=== PATIENT | female | born 1940 | race Caucasian/White ===

== ENCOUNTER 2018-03-14 07:43 | Outpatient (CLI) | payer MEDICARE, SELFPAY ==
[2018-03-14] VITALS (13 sets, daily range): BP systolic 104–143; BP diastolic 53–87; PULSE 73–84; RESP 16; TEMP 36.4; O2SAT 97–100
--- NOTE | 2018-03-14 07:45 | DI.RAD.S_ITS ---
PROCEDURE: PAIN C/T INTERLAMINAR INJECT INDICATIONS: 77 year-old female with thoracic radiculopathy. FINDINGS: Fluoroscopic spot filming was performed to verify placement of spinal needles at the posterior midline T8-T9 level(s), as labeled on the films. Appropriate location(s) of the needle tip(s) was confirmed by injection of iodinated contrast. IMPRESSION: Fluoroscopic guidance for T8-T9 epidural steroid injection. Dictated by: Brayan Trimble M.D. on 03/14/2018 at 10:21 Approved by: Brayan Trimble M.D. on 03/14/2018 at 10:22
--- NOTE | 2018-03-14 08:30 | PC.NURSE ---
PT ADMITS TO TAKING 2 VALIUM AT APPROX 0650 THIS MORNING. STATES THIS IS NORMAL PROTOCAL FOR HER BEFORE PROCEDURE. CURRENT VS'S, BP 117/70, HR 73, O2 98. SLIGHTLY UNSTEADY GAIT, WHEELCHAIR NEEDED FOR TRANSPORT FROM WAITING ROOM TO PRE-PROCEDURE ROOM. DR. COOK NOTIFIED OF MEDICATIONS AND CURRENT VITAL SIGNS AND CHANGE IN GAIT FROM BASELINE. PT STATES AT BASELINE SHE WALKS INDEPENDENTLY. PT IS A&OX4.
--- NOTE | 2018-03-14 08:59 | PM.PROC.1 ---
Procedures Date/Time Date of procedure: 03/14/18 Time of procedure: 08:59 General Procedure description: Preop diagnosis: Thoracic stenosis with HNP Postprocedure diagnosis: Thoracic stenosis with HNP Physician: Joe Mazariegos D.O. Indications: Ariana is referred by Niecy BARROSO for treatment of thoracic DDD/DJD with radiculopathy Description of procedure: Fluoroscopic guided, contrast controlled T8-9 translaminar epidural steroid injection with conscious sedation. Following denial of allergy review potential side effects and complications, including, but not necessarily limited to, infection, allergic reaction, local tissue breakdown, temporary as well as permanent nerve injury, stroke, paralysis and possible , the patient indicated that they understood and agreed to proceed. An informed consent document was signed by the patient, witnessed by the nurse, and placed in the patient's chart. Additionally other treatment options including modalities, medications and physical therapy were reviewed with the patient. Per the patient request, IV conscious sedation was administered via 3mg of Versed patient comfort. The patient's vital signs were monitored throughout the procedure by both the nurse and the position without significant fluctuation. The patient remained conversant throughout the procedure. In the prone position, following sterile prep and drape of the thoracic region the T8-9 translaminar space was identified fluoroscopically. The skin was anesthetized via 25 gauge 20 mm sheath with 1% lidocaine solution. At this point a 20 gauge epidural needle was atraumatically introduced and advanced under fluoroscopic guidance into the region of the T8-9 translaminar space depth was confirmed on lateral view. Radiographic data, including multiple fluoroscopic views of the thoracic spine, reveals spinal needle at the T8-9 translaminar space. Lateral views then showed the placement of the needle in the epidural space. Subsequent view show contrast material flowing superiorly and inferiorly in the epidural space. No vascular or intrathecal uptake is observed. At this point using loss of resistance technique with saline and the epidural space was entered. This was confirmed followed negative aspiration and injection of approximately 1.5 cc of Isovue 200 showed excellent epidural flow without vascular or intrathecal uptake. At this point, 1 cc of 1% lidocaine solution was admitted as a test dose and the patient was observed for an appropriate period of time without signs or symptoms of complications, including abdominal pain, shortness of breath, bilateral upper and lower extremity weakness, nausea and vomiting, prior to steroid injection. Subsequently, 3 cc or 30 mg of dexamethasone was then injected without incident. The patient was then transferred to the recovery area with their observed for an appropriate time after the injection. Patient reported a VAS score of 7 prior to the procedure and postprocedure VAS of 2. Total fluoroscopy time: 56.3 sec Total conscious sedation time: 24 min Joe Mazariegos D.O. Complications: none
[2018-03-14] MEDS: MIDAZOLAM 5 MG/5 ML VIAL IV (09:08)
[2018-03-14] MEDS: DEXAMETHASONE 10 MG/ML VIAL 30 MG INJ (09:23)
[2018-03-14] MEDS: LIDOCAINE 1% 20 ML INJ 5 ML INJ (09:23)
[2018-03-14] MEDS: IOPAMIDOL 15 ML VIAL 3 ML INJ (09:23)
== END 2018-03-14 10:16 | disposition home or self-care (01) ==
PROVIDERS: PCP Nurse Practitioner Primary Care; Visit Provider Physical Medicine & Rehabilitation
DX: M51.14 Intervertebral disc disorders with radiculopathy, thoracic region (principal); M48.04 Spinal stenosis, thoracic region
CPT/HCPCS: 62321; 99152; 99153; J0702; J1100; J2250

== ENCOUNTER 2018-05-01 07:45 | Outpatient (CLI) | payer MEDICARE, SELFPAY ==
[2018-05-01] VITALS (11 sets, daily range): BP systolic 120–155; BP diastolic 59–96; PULSE 63–77; RESP 14–18; TEMP 36.4; O2SAT 98–100
--- NOTE | 2018-05-01 07:47 | DI.RAD.S_ITS ---
PROCEDURE: PAIN C/T TRANFORAMINAL INJECT INDICATIONS: Thoracic radicilitis FINDINGS: Fluoroscopic spot filming was performed to verify placement of spinal needles at the right side T8-T9 level(s), as labeled on the films. Appropriate location(s) of the needle tip(s) was confirmed by injection of iodinated contrast. IMPRESSION: Successful right T8-T9 needle tip localization for epidural steroid injection. Dictated by: Lester Liang M.D. on 05/01/2018 at 14:24 Approved by: Lester Liang M.D. on 05/01/2018 at 14:24
--- NOTE | 2018-05-01 09:09 | PM.PROC.1 ---
Procedures Date/Time Date of procedure: 05/01/18 Time of procedure: 09:09 General Procedure description: PREOP DIAGNOSIS 1. FORMAINAL STENOSIS WITH LE SYMPTOMS, POST OP DIAGNOSIS 1. FORMAINAL STENOSIS WITH LE SYMPTOMS, PROCEDURES 1. FLUOROSCOPICALLY GUIDED CONTRAST CONTROLLED TRANSFORAMINAL EPIDURAL STEROID INJECTION - RIGHT T8-9 TFESI PHYSICIAN: Joe Mazariegos, DO INDICATIONS Ariana is referred by Dr. Shelton for treatment of Foraminal Stenosis with Right LE Symptoms FINDINGS Foraminal Nerve Root Compression secondary to disc disease and facet hypertrophy DESCRIPTION OF PROCEDURE Following denial of allergy and review of potential side effects and complications, including, but not necessarily limited to, infection, allergic reaction, local tissue breakdown, stroke, temporary or permanent nerve injury, paralysis, and possible , the patient indicated that the patient understood and agreed to proceed. An informed consent document was signed by the patient, witnessed by a nurse, and placed in the patient's chart. Additionally, other treatment options including medications, modalities, and physical therapy were reviewed with the patient. After review of previous anaesthesic history and IV conscious sedation the patient was deemed safe to proceed with todays procedure with IV conscious sedation as ASA class II designation. Safety time-out was performed to confirm patient ID, procedure to be performed and site of procedure. IV sedation was accomplished with a combination of 1mg was administered by the RN after DO order, titrated to patient comfort during the course of the procedure while the patient remained responsive to all verbal commands In the prone position following sterile prep and drape of the lumbar region, the right L2/3 posterior neuroforamen was identified fluoroscopically. The skin was anesthetized via a 25-gauge 1.5-inch needle with 1% lidocaine solution. At this point, a 25-gauge 3.5-inch spinal needle was atraumatically introduced and advanced under fluoroscopic guidance through the posterior right L2/3 neuroforamen to approximately the anterior aspect of the canal. Depth was confirmed on lateral view. Following negative aspiration, injection of approximately 1.5 cc of Isovue 200 under live fluoroscopy in the AP view confirmed excellent flow along the nerve root, into the epidural space without vascular or intrathecal uptake observed Radiological data, including multiple fluoroscopic views of the lumbosacral spine, reveal a spinal needle at the right L2/3 posterior neuroforamen. Subsequent views show flow of contrast material flowing superiorly and inferiorly along the nerve root confirming epidural flow. Subsequently, a test dose of 1.5 cc of 1% lidocaine solution was administered and patient was observed for signs or symptoms of complications, including abdominal pain, shortness of breath, bilateral upper or lower extremity weakness, nausea and vomiting, prior to steroid injection. At this point, a total of 3 cc or 30 mg of dexamethasone was injected without incident. The procedure tolerated the procedure well without signs or symptoms of complications prior to transfer to the recovery area continued monitoring without incident.The patient was then transferred to the recovery area where they were observed for an appropriate time after the injection. The patient reported a VAS score of 7 prior to the procedure and a post-procedure VAS of 0. Total Fluoroscopy Time: 17.3 seconds Total Conscious Sedation Time: 24min POST OP INSTRUCTIONS The patient was provided a Pain Log to continue to record their response to the target-specific procedure prior to follow-up visit with their referring physician. Additionally, specific post-injection care instructions and a contact number to our office were provided if concerns arise regarding possible complications associated with the procedure are suspected. Joe Mazariegos DO Complications: none
[2018-05-01] MEDS: BUPIVACAINE 0.25% (PF) VIAL 2 ML INJ (09:15)
[2018-05-01] MEDS: DEXAMETHASONE 10 MG/ML VIAL 20 MG INJ (09:16)
[2018-05-01] MEDS: methylPREDNISolone acetate 80 MG/ML VIAL INJ (09:17)
[2018-05-01] MEDS: MIDAZOLAM 5 MG/5 ML VIAL IV (09:17)
[2018-05-01] MEDS: IOPAMIDOL 15 ML VIAL 3 ML INJ (09:17)
--- NOTE | 2018-05-01 09:39 | P.PCN_ITS ---
Procedures Date/Time Date of procedure: 05/01/18 Time of procedure: 09:09 General Procedure description: PREOP DIAGNOSIS 1. FORMAINAL STENOSIS WITH LE SYMPTOMS, POST OP DIAGNOSIS 1. FORMAINAL STENOSIS WITH LE SYMPTOMS, PROCEDURES 1. FLUOROSCOPICALLY GUIDED CONTRAST CONTROLLED TRANSFORAMINAL EPIDURAL STEROID INJECTION - RIGHT T8-9 TFESI PHYSICIAN: Joe Mazariegos, DO INDICATIONS Ariana is referred by Dr. Shelton for treatment of Foraminal Stenosis with Right LE Symptoms FINDINGS Foraminal Nerve Root Compression secondary to disc disease and facet hypertrophy DESCRIPTION OF PROCEDURE Following denial of allergy and review of potential side effects and complications, including, but not necessarily limited to, infection, allergic reaction, local tissue breakdown, stroke, temporary or permanent nerve injury, paralysis, and possible , the patient indicated that the patient understood and agreed to proceed. An informed consent document was signed by the patient, witnessed by a nurse, and placed in the patient's chart. Additionally, other treatment options including medications, modalities, and physical therapy were reviewed with the patient. After review of previous anaesthesic history and IV conscious sedation the patient was deemed safe to proceed with todays procedure with IV conscious sedation as ASA class II designation. Safety time-out was performed to confirm patient ID, procedure to be performed and site of procedure. IV sedation was accomplished with a combination of 1mg was administered by the RN after DO order , titrated to patient comfort during the course of the procedure while the patient remained responsive to all verbal commands In the prone position following sterile prep and drape of the lumbar region, the right L2/3 posterior neuroforamen was identified fluoroscopically. The skin was anesthetized via a 25-gauge 1.5-inch needle with 1% lidocaine solution. At this point, a 25-gauge 3.5-inch spinal needle was atraumatically introduced and advanced under fluoroscopic guidance through the posterior right L2/3 neuroforamen to approximately the anterior aspect of the canal. Depth was confirmed on lateral view. Following negative aspiration, injection of approximately 1.5 cc of Isovue 200 under live fluoroscopy in the AP view confirmed excellent flow along the nerve root, into the epidural space without vascular or intrathecal uptake observed Radiological data, including multiple fluoroscopic views of the lumbosacral spine, reveal a spinal needle at the right L2/3 posterior neuroforamen. Subsequent views show flow of contrast material flowing superiorly and inferiorly along the nerve root confirming epidural flow. Subsequently, a test dose of 1.5 cc of 1% lidocaine solution was administered and patient was observed for signs or symptoms of complications, including abdominal pain, shortness of breath, bilateral upper or lower extremity weakness , nausea and vomiting, prior to steroid injection. At this point, a total of 3 cc or 30 mg of dexamethasone was injected without incident. The procedure tolerated the procedure well without signs or symptoms of complications prior to transfer to the recovery area continued monitoring without incident.The patient was then transferred to the recovery area where they were observed for an appropriate time after the injection. The patient reported a VAS score of 7 prior to the procedure and a post- procedure VAS of 0. Total Fluoroscopy Time: 17.3 seconds Total Conscious Sedation Time: 24min POST OP INSTRUCTIONS The patient was provided a Pain Log to continue to record their response to the target-specific procedure prior to follow-up visit with their referring physician. Additionally, specific post-injection care instructions and a contact number to our office were provided if concerns arise regarding possible complications associated with the procedure are suspected. Joe Mazariegos DO Complications: none
--- NOTE | 2018-05-01 10:27 | PC.NURSE ---
UPON ARRIVAL TO POST PROCEDURE ROOM, PT NOTED TO HAVE NEW, PERSISITENT, NON PRODUCTIVE COUGH. VSS, LUNG SOUNDS CLEAR. NO OTHER CONCERNS NOTED. COUGH DECREASED PT RESTED AFTER PROCEDURE.
--- NOTE | 2018-05-01 16:09 | PC.NURSE ---
FOLLOW UP CALL MADE TO CHECK ON PT'S COUGH THAT STARTED POST PROCEDURE TODAY. PT DENIES FURTHER COUGHING OR OTHER CONCERNS.
--- NOTE | 2018-05-02 09:58 | PC.NURSE ---
Called pt one post procedure to check in with her. She said her right breast is a little tender but she has taken valium which helps with that. Her pain today she rates at a 5/10. She appreciates her care and denies any other concerns.
== END 2018-05-01 10:47 | disposition home or self-care (01) ==
LOC: RAD 07:46
PROVIDERS: PCP Nurse Practitioner Primary Care; Visit Provider Physical Medicine & Rehabilitation
DX: M48.04 Spinal stenosis, thoracic region (principal); M51.14 Intervertebral disc disorders with radiculopathy, thoracic region
CPT/HCPCS: 64479; 99152; 99153; J1040; J1100; J2250

== ENCOUNTER 2018-08-07 10:58 | Outpatient (CLI) | payer MEDICARE, SELFPAY ==
[2018-08-07] VITALS (8 sets, daily range): BP systolic 105–153; BP diastolic 59–81; PULSE 69–97; RESP 15–18; TEMP 36.4; O2SAT 97–100
--- NOTE | 2018-08-07 11:00 | DI.RAD.S_ITS ---
PROCEDURE: PAIN C/T TRANFORAMINAL INJECT INDICATIONS: INTERVERTEBRAL DISC DISPLACEMENT FINDINGS: Fluoroscopic spot filming was performed to verify placement of spinal needles at the T8-T9 level(s), as labeled on the films. Appropriate location(s) of the needle tip(s) was confirmed by injection of iodinated contrast. IMPRESSION: Fluoroscopy for pain management. Dictated by: Blake Coy M.D. on 08/07/2018 at 16:49 Approved by: Blake Coy M.D. on 08/07/2018 at 16:49
[2018-08-07] MEDS: MIDAZOLAM 5 MG/5 ML VIAL IV (12:00)
[2018-08-07] MEDS: DEXAMETHASONE 10 MG/ML VIAL 30 MG INJ (12:14)
[2018-08-07] MEDS: IOPAMIDOL 15 ML VIAL 3 ML INJ (12:14)
[2018-08-07] MEDS: LIDOCAINE 1% 20 ML INJ INJ (12:14)
--- NOTE | 2018-08-07 12:30 | PC.NURSE ---
1211 procedure finished, pt helped off table and into wheelchair with minimal assist, pt alert and oriented. she is able to maintain her airway. taken to pre procedure room for continued monitoring.
--- NOTE | 2018-08-07 13:09 | P.PCN_ITS ---
Procedures Date/Time Date of procedure: 08/07/18 Time of procedure: 13:08 General Procedure description: PREOP DIAGNOSIS 1. FORMAINAL STENOSIS WITH LE SYMPTOMS, POST OP DIAGNOSIS 1. FORMAINAL STENOSIS WITH LE SYMPTOMS, PROCEDURES 1. FLUOROSCOPICALLY GUIDED CONTRAST CONTROLLED TRANSFORAMINAL EPIDURAL STEROID INJECTION - RIGHT T8/9 TFESI PHYSICIAN: Joe Mazariegos, DO INDICATIONS Ariana is referred by [facility] for treatment of Foraminal Stenosis with Right thoracic Symptoms FINDINGS Foraminal Nerve Root Compression secondary to disc disease and facet hypertrophy DESCRIPTION OF PROCEDURE Following denial of allergy and review of potential side effects and complications, including, but not necessarily limited to, infection, allergic reaction, local tissue breakdown, stroke, temporary or permanent nerve injury, paralysis, and possible , the patient indicated that the patient understood and agreed to proceed. An informed consent document was signed by the patient, witnessed by a nurse, and placed in the patient's chart. Additionally, other treatment options including medications, modalities, and physical therapy were reviewed with the patient. After review of previous anaesthesic history and IV conscious sedation the patient was deemed safe to proceed with todays procedure with IV conscious sedation as ASA class II designation. Safety time-out was performed to confirm patient ID, procedure to be performed and site of procedure. IV sedation was accomplished with a combination of 3mg was administered by the RN after DO order , titrated to patient comfort during the course of the procedure while the patient remained responsive to all verbal commands In the prone position following sterile prep and drape of the lumbar region, the right T8-9 posterior neuroforamen was identified fluoroscopically. The skin was anesthetized via a 25-gauge 1.5-inch needle with 1% lidocaine solution. At this point, a 25-gauge 3.5-inch spinal needle was atraumatically introduced and advanced under fluoroscopic guidance through the posterior right T8-9 neuroforamen to approximately the anterior aspect of the canal. Depth was confirmed on lateral view. Following negative aspiration, injection of approximately 1.5 cc of Isovue 200 under live fluoroscopy in the AP view confirmed excellent flow along the nerve root, into the epidural space without vascular or intrathecal uptake observed Radiological data, including multiple fluoroscopic views reveal the needle placement in the right T8/8 posterior neuroforamen. Subsequent views show flow of contrast material flowing superiorly and inferiorly along the nerve root confirming epidural flow. Subsequently, a test dose of 1.5 cc of 1% lidocaine solution was administered and patient was observed for signs or symptoms of complications, including abdominal pain, shortness of breath, bilateral upper or lower extremity weakness , nausea and vomiting, prior to steroid injection. At this point, a total of 3 cc or 30 mg of dexamethasone was injected without incident. The procedure tolerated the procedure well without signs or symptoms of complications prior to transfer to the recovery area continued monitoring without incident.The patient was then transferred to the recovery area where they were observed for an appropriate time after the injection. The patient reported a VAS score of 7 prior to the procedure and a post- procedure VAS of 0. Total Fluoroscopy Time: 17.3 seconds Total Conscious Sedation Time: 24min POST OP INSTRUCTIONS The patient was provided a Pain Log to continue to record their response to the target-specific procedure prior to follow-up visit with their referring physician. Additionally, specific post-injection care instructions and a contact number to our office were provided if concerns arise regarding possible complications associated with the procedure are suspected. Joe Mazariegos DO Complications: none
== END 2018-08-07 12:44 | disposition home or self-care (01) ==
LOC: RAD 10:59
PROVIDERS: PCP Nurse Practitioner Primary Care; Visit Provider Physical Medicine & Rehabilitation
DX: M48.04 Spinal stenosis, thoracic region (principal); M51.14 Intervertebral disc disorders with radiculopathy, thoracic region
CPT/HCPCS: 64479; 99152; J1100; J2250

== ENCOUNTER 2018-11-20 08:21 | Outpatient (CLI) | payer MEDICARE, SELFPAY ==
[2018-11-20] VITALS (7 sets, daily range): BP systolic 106–146; BP diastolic 57–76; PULSE 68–84; RESP 16–18; TEMP 36.5; O2SAT 97–100
--- NOTE | 2018-11-20 08:23 | DI.RAD.S_ITS ---
PROCEDURE: PAIN C/T TRANFORAMINAL INJECT INDICATIONS: RADICULOPATHY FINDINGS: Fluoroscopic spot filming was performed to verify placement of spinal needles at the T8-T9 level(s), as labeled on the films. Appropriate location(s) of the needle tip(s) was confirmed by injection of iodinated contrast. Dictated by: Trenton Bronson M.D. on 11/20/2018 at 11:51 Approved by: Trenton Bronson M.D. on 11/20/2018 at 11:51
--- NOTE | 2018-11-20 09:41 | PM.PROC.1 ---
Procedures Date/Time Date of procedure: 11/20/18 Time of procedure: 09:41 General Procedure description: PREOP DIAGNOSIS 1. FORMAINAL STENOSIS WITH LE SYMPTOMS, POST OP DIAGNOSIS 1. FORMAINAL STENOSIS WITH LE SYMPTOMS, PROCEDURES 1. FLUOROSCOPICALLY GUIDED CONTRAST CONTROLLED TRANSFORAMINAL EPIDURAL STEROID INJECTION - RIGHT T8/9 TFESI PHYSICIAN: Joe Mazariegos, DO INDICATIONS Ariana is referred by Dr. hSelton for treatment of Foraminal Stenosis with Right thoracic Symptoms FINDINGS Foraminal Nerve Root Compression secondary to disc disease and facet hypertrophy DESCRIPTION OF PROCEDURE Following denial of allergy and review of potential side effects and complications, including, but not necessarily limited to, infection, allergic reaction, local tissue breakdown, stroke, temporary or permanent nerve injury, paralysis, and possible , the patient indicated that the patient understood and agreed to proceed. An informed consent document was signed by the patient, witnessed by a nurse, and placed in the patient's chart. Additionally, other treatment options including medications, modalities, and physical therapy were reviewed with the patient. After review of previous anaesthesic history and IV conscious sedation the patient was deemed safe to proceed with todays procedure with IV conscious sedation as ASA class II designation. Safety time-out was performed to confirm patient ID, procedure to be performed and site of procedure. IV sedation was accomplished with a combination of 5mg of Versed was administered by the RN after DO order, titrated to patient comfort during the course of the procedure while the patient remained responsive to all verbal commands In the prone position following sterile prep and drape of the lumbar region, the right T8-9 posterior neuroforamen was identified fluoroscopically. The skin was anesthetized via a 25-gauge 1.5-inch needle with 1% lidocaine solution. At this point, a 25-gauge 3.5-inch spinal needle was atraumatically introduced and advanced under fluoroscopic guidance through the posterior right T8-9 neuroforamen to approximately the anterior aspect of the canal. Depth was confirmed on lateral view. Following negative aspiration, injection of approximately 1.5 cc of Isovue 200 under live fluoroscopy in the AP view confirmed excellent flow along the nerve root, into the epidural space without vascular or intrathecal uptake observed Radiological data, including multiple fluoroscopic views reveal the needle placement in the right T8/8 posterior neuroforamen. Subsequent views show flow of contrast material flowing superiorly and inferiorly along the nerve root confirming epidural flow. Subsequently, a test dose of 1.5 cc of 1% lidocaine solution was administered and patient was observed for signs or symptoms of complications, including abdominal pain, shortness of breath, bilateral upper or lower extremity weakness, nausea and vomiting, prior to steroid injection. At this point, a total of 2cc or 20mg of dexamethasone was injected without incident. The procedure tolerated the procedure well without signs or symptoms of complications prior to transfer to the recovery area continued monitoring without incident.The patient was then transferred to the recovery area where they were observed for an appropriate time after the injection. The patient reported a VAS score of 7 prior to the procedure and a post-procedure VAS of 0. Total Fluoroscopy Time: 17.3 seconds Total Conscious Sedation Time: 24min POST OP INSTRUCTIONS The patient was provided a Pain Log to continue to record their response to the target-specific procedure prior to follow-up visit with their referring physician. Additionally, specific post-injection care instructions and a contact number to our office were provided if concerns arise regarding possible complications associated with the procedure are suspected. Joe Mazariegos DO Complications: none
--- NOTE | 2018-11-20 09:44 | P.PCN_ITS ---
Procedures Date/Time Date of procedure: 11/20/18 Time of procedure: 09:41 General Procedure description: PREOP DIAGNOSIS 1. FORMAINAL STENOSIS WITH LE SYMPTOMS, POST OP DIAGNOSIS 1. FORMAINAL STENOSIS WITH LE SYMPTOMS, PROCEDURES 1. FLUOROSCOPICALLY GUIDED CONTRAST CONTROLLED TRANSFORAMINAL EPIDURAL STEROID INJECTION - RIGHT T8/9 TFESI PHYSICIAN: Joe Mazariegos, DO INDICATIONS Ariana is referred by Dr. Shelton for treatment of Foraminal Stenosis with Right thoracic Symptoms FINDINGS Foraminal Nerve Root Compression secondary to disc disease and facet hypertrophy DESCRIPTION OF PROCEDURE Following denial of allergy and review of potential side effects and complications, including, but not necessarily limited to, infection, allergic reaction, local tissue breakdown, stroke, temporary or permanent nerve injury, paralysis, and possible , the patient indicated that the patient understood and agreed to proceed. An informed consent document was signed by the patient, witnessed by a nurse, and placed in the patient's chart. Additionally, other treatment options including medications, modalities, and physical therapy were reviewed with the patient. After review of previous anaesthesic history and IV conscious sedation the patient was deemed safe to proceed with todays procedure with IV conscious sedation as ASA class II designation. Safety time-out was performed to confirm patient ID, procedure to be performed and site of procedure. IV sedation was accomplished with a combination of 5mg of Versed was administered by the RN after DO order, titrated to patient comfort during the course of the procedure while the patient remained responsive to all verbal commands In the prone position following sterile prep and drape of the lumbar region, the right T8-9 posterior neuroforamen was identified fluoroscopically. The skin was anesthetized via a 25-gauge 1.5-inch needle with 1% lidocaine solution. At this point, a 25-gauge 3.5-inch spinal needle was atraumatically introduced and advanced under fluoroscopic guidance through the posterior right T8-9 neuroforamen to approximately the anterior aspect of the canal. Depth was confirmed on lateral view. Following negative aspiration, injection of approximately 1.5 cc of Isovue 200 under live fluoroscopy in the AP view confirmed excellent flow along the nerve root, into the epidural space without vascular or intrathecal uptake observed Radiological data, including multiple fluoroscopic views reveal the needle placement in the right T8/8 posterior neuroforamen. Subsequent views show flow of contrast material flowing superiorly and inferiorly along the nerve root confirming epidural flow. Subsequently, a test dose of 1.5 cc of 1% lidocaine solution was administered and patient was observed for signs or symptoms of complications, including abd ominal pain, shortness of breath, bilateral upper or lower extremity weakness, nausea and vomiting, prior to steroid injection. At this point, a total of 2cc or 20mg of dexamethasone was injected without incident. The procedure tolerated the procedure well without signs or symptoms of complications prior to transfer to the recovery area continued monitoring without incident.The patient was then transferred to the recovery area where they were observed for an appropriate time after the injection. The patient reported a VAS score of 7 prior to the procedure and a post- procedure VAS of 0. Total Fluoroscopy Time: 17.3 seconds Total Conscious Sedation Time: 24min POST OP INSTRUCTIONS The patient was provided a Pain Log to continue to record their response to the target-specific procedure prior to follow-up visit with their referring physician. Additionally, specific post-injection care instructions and a contact number to our office were provided if concerns arise regarding possible complications associated with the procedure are suspected. Joe Mazariegos DO Complications: none
[2018-11-20] MEDS: MIDAZOLAM 5 MG/5 ML VIAL IV (09:46)
[2018-11-20] MEDS: BUPIVACAINE 0.25% (PF) VIAL 2 ML INJ (09:51)
[2018-11-20] MEDS: IOPAMIDOL 15 ML VIAL 3 ML INJ (09:51)
[2018-11-20] MEDS: DEXAMETHASONE 10 MG/ML VIAL 20 MG INJ (09:51)
--- NOTE | 2018-11-20 10:49 | PC.NURSE ---
Procedure finished at 1001, pt tolerated and was able to get off gurney with minimal assist. Pt transferred via wheelchair to pre procedure room for continued monitoring with Alicia PIERCE.
--- NOTE | 2018-11-21 16:18 | PC.NURSE ---
Follow up call made post procedure and Pt not having any pain at all. Denies sx's of steroids. I feel like a new person
== END 2018-11-20 10:19 | disposition home or self-care (01) ==
LOC: RAD 08:22
PROVIDERS: PCP Nurse Practitioner Primary Care; Visit Provider Physical Medicine & Rehabilitation
DX: M48.04 Spinal stenosis, thoracic region (principal); M51.14 Intervertebral disc disorders with radiculopathy, thoracic region
CPT/HCPCS: 64479; 99152; J1100; J2250

== ENCOUNTER 2019-01-20 16:36 | Emergency (ER) | payer MEDICARE, SELFPAY ==
[2019-01-20 16:49] VITALS: BP 110/58; PULSE 78; RESP 16; O2SAT 96
[2019-01-20 17:00] VITALS: BP 103/50; PULSE 72; RESP 16; O2SAT 93
[2019-01-20] MEDS: SODIUM CHLORIDE 0.9% 1,000 ML 150 ML IV (17:28)
--- NOTE | 2019-01-20 17:36 | PC.NURSE ---
Patient declined chest xray
--- NOTE | 2019-01-20 17:43 | ED_ITS ---
HPI - Arrhythmia/Palpitations General Chief Complaint: Arrhythmia/Palpitations Stated Complaint: thinks she is in AFIB Time Seen by Provider: 01/20/19 17:11 Source: patient and old records reviewed Mode of arrival: ambulatory Limitations: no limitations History of Present Illness HPI narrative: This is an 78-year-old female who comes to the emergency department with complaint of atrial fibrillation. Patient states that she woke up this morning with irregular heartbeat. She states that she gets it intermittently. Her last episode of the year and half ago. She does not take anticoagulation, she does take diltiazem regularly but when she has an episode she will take a dose. Today she took 1 dose of diltiazem 360 at 9:00 a.m. and then a 2nd tablet 2:00 p.m.. Patient states she felt lightheaded. Right now she does not feel lightheaded. She came in because last time she waited 5 days before she came into the hospital. She states she does not feel like she is in atrial fibrillation at this time. She denies any syncope. She denies any chest pain, shortness of breath, no nausea and no vomiting she has not been clammy. He denies any other medical issues. She has had a hysterectomy as well as her appendix out. She does drink about 2 glasses of wine nightly. She has not had any extra recently. She has never had an ablation or cardiac catheterization or other intervention. Related Data Home Medications Medication Instructions Recorded Confirmed [KRILL OIL] 3 cap PO QDAY #0 12/14/17 12/06/18 [TURMERIC] 1 cap PO QDAY #0 12/14/17 12/06/18 benazepril 40 mg PO QDAY #0 12/14/17 12/06/18 cetirizine 10 mg PO QDAY #0 12/14/17 12/06/18 clobetasol 1 pako TOPICAL QDAY #0 12/14/17 12/06/18 coenzyme Q10 [Co Q-10] 3 cap PO QDAY #0 12/14/17 12/06/18 diltiazem HCl 1 cap PO Q DAY PRN PRN #0 12/14/17 12/06/18 docusate sodium 100 - 200 mg PO QDAYP PRN #0 12/14/17 12/06/18 estradiol 0.5 mg PO QDAY #0 12/14/17 12/06/18 gabapentin 200 mg PO HSP PRN #0 12/14/17 12/06/18 magnesium oxide 250 mg PO QDAY #0 12/14/17 12/06/18 multivitamin [Multiple Vitamins] 1 tab PO QDAY #0 12/14/17 12/06/18 vitamin B complex [B 1 tab PO QDAY #0 12/14/17 12/06/18 Complex-Vitamin B12] Previous Rx's Medication Instructions Recorded diazepam 10 mg tablet 5 mg PO TID #30 tab 11/01/18 celecoxib 200 mg capsule 200 mg PO QDAY #90 cap 12/18/18 cyclobenzaprine 10 mg tablet 10 mg PO TIDP PRN #90 tab 12/18/18 gabapentin 300 mg capsule 300 mg PO TID #270 cap 01/18/19 Allergies Allergy/AdvReac Type Severity Reaction Status Date / Time codeine [CODEINE] Allergy Unknown CHEST Verified 12/06/18 09:32 PRESSURE Review of Systems Review of Systems ROS Unobtainable: All systems reviewed & are unremarkable except as noted in HPI and below Constitutional Denies chills, Denies fever(s), Denies lethargy and Denies weakness Cardiovascular Denies chest pain, Denies chest pain at rest, Denies diaphoresis, Denies syncope, Reports rapid heart rate (this morning), Denies edema, Reports irregular heart rhythm, Denies leg edema, Reports lightheadedness, Denies palpitations, Denies dyspnea, Denies dyspnea on exertion and Denies orthopnea Respiratory Denies chest congestion, Denies cough, Denies dyspnea and Denies dyspnea on exertion Gastrointestinal Gastrointestinal: Denies abdominal pain, Denies change in bowel habits, Denies nausea and Denies vomiting Genitourinary Denies hematuria, Denies urinary frequency, Denies dysuria, Denies flank pain and Denies urinary urgency Neurologic Denies syncope and Denies weakness Endocrine Denies palpitations PFS Medical History (Updated 01/20/19 @ 17:50 by Jess Coates DO) Atrial fibrillation (Chronic) H/O: hysterectomy (Chronic) Surgical History (Updated 01/20/19 @ 17:42 by Jess Coates DO) Hx of appendectomy (Chronic) Social History (Updated 01/20/19 @ 17:42 by Jess Coates DO) Smoking Status: Never smoker alcohol intake: current Social History (Updated 01/20/19 @ 17:42 by Jess Coates DO) Smoking Status: Never smoker alcohol intake: current Exam Narrative Exam Narrative: GENERAL: Alert and oriented x three, well-nourished, well- appearing female in no acute distress. Patient was able to sit up at the side of the bed without any issue. HEENT: Head normocephalic, atraumatic, EOMI, pupils reactive, face symmetric, moist mucous membranes NECK: Supple, full range of motion CARDIOVASCULAR: Regular rate and rhythm without murmurs, rubs or gallops. No JVD. No edema bilateral lower extremities. RESPIRATORY: Breath sounds equal bilaterally, no wheezes rales or rhonchi. ABDOMEN: Soft, nontender. Normoactive bowel sounds all 4 quadrants. No guarding or rebound, rigidity, no mass EXTREMITIES: Normal range of motion, no clubbing or edema. Neurovascularly intact NEUROLOGICAL: Cranial nerves II through XII grossly intact. Moving all extremities SKIN: Warm, dry, no petechiae, no rashes or lesions. Initial Vital Signs Initial Vital Signs: Vital Signs Pulse Rate 78 01/20/19 16:49 Respiratory Rate 16 01/20/19 16:49 Blood Pressure 110/58 L 01/20/19 16:49 Pulse Oximetry 96 01/20/19 16:49 Course Orders Ordered: ED Orders 01/20/19 16:40 EKG-12 Lead Stat 01/20/19 17:50 Basic Metabolic Panel Stat Complete Blood Count AUTO DIFF Stat Magnesium Stat Partial Thromboplastin Time Stat Prothrombin Time INR Stat Thyroid Stimulating Hormone Stat Troponin & CK Cardiac Panel Stat Discontinued Medications Sodium Chloride (Normal Saline 0.9%) 1,000 mls @ 150 mls/hr IV CONT FIONA Last Infusion: 01/20/19 18:51 Dose: 0 mls/hr Admin: 01/20/19 17:28 Dose: 150 mls/hr Vital Signs - 8 hr 01/20/19 16:49 01/20/19 17:00 01/20/19 18:00 Pulse Rate 78 72 64 Respiratory Rate 16 16 Blood Pressure 110/58 L Blood Pressure [Left Arm] 103/50 L 103/53 L Pulse Oximetry 96 93 93 MDM - Arrhythmia/Palpitations Lab Data Result diagrams: 01/20/19 17:50 01/20/19 17:50 Lab Results 01/20/19 01/20/19 01/20/19 Range/Units 17:50 17:50 17:50 WBC 7.3 (4.5-11.0) X10^3/uL RBC 4.30 (4.0-5.2) X10^6/uL Hgb 13.8 (12.0-16.0) g/dL Hct 41.4 (36-46) % MCV 96.2 (80-100) fL MCH 32.0 (26-34) PG MCHC 33.3 (30-36) % RDW 13.7 (11.6-14.8) % Plt Count 189 (150-400) X10^3/uL Neut % (Auto) 69.8 (50-75) % Lymph % (Auto) 20.0 L (25-40) % Brewster % (Auto) 7.3 (3-14) % Eos % (Auto) 2.4 (2-4) % Baso % (Auto) 0.5 (0-2) % Neut # (Auto) 5100 (7288-9544) /uL Lymph # (Auto) 1500 (0675-9987) /uL Brewster # (Auto) 500 (0-900) /uL Eos # (Auto) 200 (0-450) /uL Baso # (Auto) 0 (0-100) /uL PT 10.7 (10.1-12.7) SECONDS INR 0.9 (0.9-1.3) APTT 25 L (26.4-36.2) SECONDS Sodium 133 L (137-145) mmol/L Potassium 4.3 (3.4-5.1) mmol/L Chloride 101 (98-107) mmol/L Carbon Dioxide 24 (22-32) mmol/L BUN 21 H (7-17) mg/dL Creatinine 0.90 (0.52-1.04) mg/dL Estimated GFR > 60.0 (>60) mL/min BUN/Creatinine Ratio 23.3 H (6-22) Glucose 74 L (80-110) mg/dL Calcium 9.0 (8.4-10.2) mg/dL Magnesium 2.1 (1.6-2.3) mg/dL Total Creatine Kinase 30 (30-135) U/L CK-MB (CK-2) TNP CK-MB (CK-2) Rel Index TNP Troponin I < 0.012 (0.01-0.034) ng/mL TSH (0.47-4.68) uIU/mL 01/20/19 Range/Units 17:50 WBC (4.5-11.0) X10^3/uL RBC (4.0-5.2) X10^6/uL Hgb (12.0-16.0) g/dL Hct (36-46) % MCV (80-100) fL MCH (26-34) PG MCHC (30-36) % RDW (11.6-14.8) % Plt Count (150-400) X10^3/uL Neut % (Auto) (50-75) % Lymph % (Auto) (25-40) % Brewster % (Auto) (3-14) % Eos % (Auto) (2-4) % Baso % (Auto) (0-2) % Neut # (Auto) (1612-9705) /uL Lymph # (Auto) (6056-6083) /uL Brewster # (Auto) (0-900) /uL Eos # (Auto) (0-450) /uL Baso # (Auto) (0-100) /uL PT (10.1-12.7) SECONDS INR (0.9-1.3) APTT (26.4-36.2) SECONDS Sodium (137-145) mmol/L Potassium (3.4-5.1) mmol/L Chloride (98-107) mmol/L Carbon Dioxide (22-32) mmol/L BUN (7-17) mg/dL Creatinine (0.52-1.04) mg/dL Estimated GFR (>60) mL/min BUN/Creatinine Ratio (6-22) Glucose (80-110) mg/dL Calcium (8.4-10.2) mg/dL Magnesium (1.6-2.3) mg/dL Total Creatine Kinase (30-135) U/L CK-MB (CK-2) CK-MB (CK-2) Rel Index Troponin I (0.01-0.034) ng/mL TSH 2.60 (0.47-4.68) uIU/mL ECG Data Attestation: I personally reviewed and interpreted this ECG as follows: Prior ECG tracings: available for review Interpretation: Sinus rhythm with rate of 90, P are 169, QRS is 79 and QTC of 377. No ST elevation. Patient has some nonspecific changes T-wave inversion in 1 aVL. EKG from 12/15/2017 appears similar except T waves do appear slightly different in 1 aVL. MDM Narrative Medical decision making narrative: Patient politely refused his chest x-ray, she states she just wanted to see if she was in atrial fibrillation. She is willing to do blood work. She is denying any shortness of breath chest pain and does not have any crackles on chest x-ray so concern for pulmonary edema is much lower. Patient's lab work does not show any acute change, she cardioverted with her oral medication at home. I discussed that she should take something daily and or at least be on something for anticoagulation as she is at risk for stroke. She does have follow-up in the next week. Discharge Plan Departure Patient Disposition: Home Clinical Impression: PAF (paroxysmal atrial fibrillation) Discharge Date/Time: 01/20/19 18:50 Interventions: ED Discharge Assessment Last Done: 01/20/19 18:50 Instructions: DI for Atrial Fibrillation Activity Restrictions/Additional Instructions: Follow up with your physician this week. I would recommend you take your diltiazem once daily, this will prevent recurrence of your atrial fibrillation, even if it only occurs rarely. Even only occasional episodes of atrial fibrillation increase your risk of stroke. I would also recommend blood thinners to prevent her risk of stroke. You can discuss this with your physician if you do not wish to start them today. Return to the emergency department for recurrent symptoms especially for having any chest pain, shortness of breath, lightheadedness or passing-out, vomiting or other new or concerning symptoms. Prescriptions: No Action benazepril 40 MG tablet 40 mg PO QDAY Qty: 0 RF: 0 estradiol 0.5 MG tablet 0.5 mg PO QDAY Qty: 0 RF: 0 gabapentin 100 MG capsule 200 mg PO HSP PRNQty: 0 RF: 0 clobetasol 0.05 % ointment 1 pako Topical QDAY Qty: 0 RF: 0 diltiazem HCl 360 MG capsule,extended release 24 hr 1 cap PO Q DAY PRN PRNQty: 0 RF: 0 [KRILL OIL] 3 cap PO QDAY Qty: 0 RF: 0 multivitamin [Multiple Vitamins] 1 EACH tablet 1 tab PO QDAY Qty: 0 RF: 0 magnesium oxide 250 MG tablet 250 mg PO QDAY Qty: 0 RF: 0 coenzyme Q10 [Co Q-10] 100 MG capsule 3 cap PO QDAY Qty: 0 RF: 0 cetirizine 10 MG tablet 10 mg PO QDAY Qty: 0 RF: 0 [TURMERIC] 1 cap PO QDAY Qty: 0 RF: 0 docusate sodium 100 MG capsule 100 - 200 mg PO QDAYP PRNQty: 0 RF: 0 vitamin B complex [B Complex-Vitamin B12] 1 EACH tablet 1 tab PO QDAY Qty: 0 RF: 0 diazepam 10 mg tablet 5 mg PO TID Qty: 30 RF: 0 celecoxib 200 mg capsule 200 mg PO QDAY Qty: 90 RF: 4 cyclobenzaprine 10 mg tablet 10 mg PO TIDP PRN (Reason: muscle spasm) Qty: 90 RF: 4 gabapentin 300 mg capsule 300 mg PO TID Qty: 270 RF: 6 Referrals: Niecy Shelton, MSN [Primary Care Provider] -
[2019-01-20 17:56] LABS: Add Manual Diff / Slide Review NO; Basophils Absolute Auto 0 /uL (0-100); Basophils Percent Auto 0.5 % (0-2); Eosinophils Absolute Auto 200 /uL (0-450); Eosinophils Percent Auto 2.4 % (2-4); Hematocrit 41.4 % (36-46); Hemoglobin 13.8 g/dL (12.0-16.0); Lymphocytes Absolute Auto 1500 /uL (1100-4500); Mean Corpuscular HGB Conc 33.3 % (30-36); Mean Corpuscular Volume 96.2 fL (80-100); Monocytes Absolute Auto 500 /uL (0-900); Monocytes Percent Auto 7.3 % (3-14); Neutrophils Absolute Auto 5100 /uL (1500-7000); Neutrophils Percent Auto 69.8 % (50-75); Platelet Count 189 X10^3/uL (150-400); Red Cell Distribution Width 13.7 % (11.6-14.8); White Blood Cell Count 7.3 X10^3/uL (4.5-11.0)
[2019-01-20 18:00] VITALS: BP 103/53; PULSE 64; O2SAT 93
[2019-01-20 18:03] LABS: INR 0.9 (0.9-1.3); Prothrombin Time 10.7 SECONDS (10.1-12.7)
[2019-01-20 18:05] LABS: PTT Partial Thromboplastin Tim 25 SECONDS (26.4-36.2)
[2019-01-20 18:08] LABS: BUN Creatinine Ratio 23.3 (6-22); Blood Urea Nitrogen 21 mg/dL (7-17); Carbon Dioxide 24 mmol/L (22-32); Chloride 101 mmol/L (98-107); Creatine Kinase 30 U/L (30-135); Estimated Glomerular Filt Rate > 60.0 mL/min (>60); Glucose 74 mg/dL (80-110); HEMOLYSIS < 15 (0-50); Magnesium 2.1 mg/dL (1.6-2.3); Potassium 4.3 mmol/L (3.4-5.1); Sodium 133 mmol/L (137-145)
[2019-01-20 18:20] LABS: Troponin I < 0.012 ng/mL (0.01-0.034)
== END 2019-01-20 18:50 | disposition home or self-care (01) ==
PROVIDERS: Emergency Provider Emergency Medicine; PCP Nurse Practitioner Primary Care
DX: I48.0 Paroxysmal atrial fibrillation (principal); R42 Dizziness and giddiness
CPT/HCPCS: 36591; 80048; 82550; 83735; 84443; 84484; 85025; 85610; 85730; 93005; 93041; 96360; 99284

== ENCOUNTER 2019-02-19 08:29 | Outpatient (CLI) | payer MEDICARE, SELFPAY ==
[2019-02-19] VITALS (8 sets, daily range): BP systolic 98–140; BP diastolic 59–82; PULSE 65–85; RESP 14–18; TEMP 36.7; O2SAT 97–100
--- NOTE | 2019-02-19 08:30 | DI.RAD.S_ITS ---
PROCEDURE: PAIN C/T TRANFORAMINAL INJECT INDICATIONS: INTERVERTEBRAL DISC DEGENERATION FINDINGS: Fluoroscopic spot filming was performed to verify placement of spinal needles at the T8-T9 level(s), as labeled on the films. Appropriate location(s) of the needle tip(s) was confirmed by injection of iodinated contrast. Dictated by: Trenton Bronson M.D. on 02/19/2019 at 11:26 Approved by: Trenton Bronson M.D. on 02/19/2019 at 11:26
[2019-02-19] MEDS: MIDAZOLAM 5 MG/5 ML VIAL IV (10:02)
[2019-02-19] MEDS: fentaNYL 100 MCG/2 ML INJ 50 MCG IV (10:03)
[2019-02-19] MEDS: DEXAMETHASONE 10 MG/ML VIAL 20 MG INJ (10:14)
[2019-02-19] MEDS: IOPAMIDOL 15 ML VIAL 3 ML INJ (10:14)
--- NOTE | 2019-02-19 10:17 | PC.NURSE ---
ASSISTING PT OFF TABLE AND TRANSPORTING TO POST PROC AREA IN STABLE CONDITION
--- NOTE | 2019-02-19 10:20 | PM.PROC.1 ---
Procedures Date/Time Date of procedure: 02/19/19 Time of procedure: 10:20 General Procedure description: PREOP DIAGNOSIS 1. FORMAINAL STENOSIS WITH LE SYMPTOMS, POST OP DIAGNOSIS 1. FORMAINAL STENOSIS WITH LE SYMPTOMS, PROCEDURES 1. FLUOROSCOPICALLY GUIDED CONTRAST CONTROLLED TRANSFORAMINAL EPIDURAL STEROID INJECTION - RIGHT T8/9 TFESI PHYSICIAN: Joe Mazariegos, DO INDICATIONS Ariana is referred for treatment of Foraminal Stenosis with Right thoracic Symptoms FINDINGS Foraminal Nerve Root Compression secondary to disc disease and facet hypertrophy DESCRIPTION OF PROCEDURE Following denial of allergy and review of potential side effects and complications, including, but not necessarily limited to, infection, allergic reaction, local tissue breakdown, stroke, temporary or permanent nerve injury, paralysis, and possible , the patient indicated that the patient understood and agreed to proceed. An informed consent document was signed by the patient, witnessed by a nurse, and placed in the patient's chart. Additionally, other treatment options including medications, modalities, and physical therapy were reviewed with the patient. After review of previous anaesthesic history and IV conscious sedation the patient was deemed safe to proceed with todays procedure with IV conscious sedation as ASA class II designation. Safety time-out was performed to confirm patient ID, procedure to be performed and site of procedure. IV sedation was accomplished with a combination of 2mg of Versed and 50,mcg of Fentanyl was administered by the RN after DO order, titrated to patient comfort during the course of the procedure while the patient remained responsive to all verbal commands In the prone position following sterile prep and drape of the lumbar region, the right T8-9 posterior neuroforamen was identified fluoroscopically. The skin was anesthetized via a 25-gauge 1.5-inch needle with 1% lidocaine solution. At this point, a 25-gauge 3.5-inch spinal needle was atraumatically introduced and advanced under fluoroscopic guidance through the posterior right T8-9 neuroforamen to approximately the anterior aspect of the canal. Depth was confirmed on lateral view. Following negative aspiration, injection of approximately 1.5 cc of Isovue 200 under live fluoroscopy in the AP view confirmed excellent flow along the nerve root, into the epidural space without vascular or intrathecal uptake observed Radiological data, including multiple fluoroscopic views reveal the needle placement in the right T8/9 posterior neuroforamen. Subsequent views show flow of contrast material flowing superiorly and inferiorly along the nerve root confirming epidural flow. Subsequently, a test dose of 1.5 cc of 1% lidocaine solution was administered and patient was observed for signs or symptoms of complications, including abdominal pain, shortness of breath, bilateral upper or lower extremity weakness, nausea and vomiting, prior to steroid injection. At this point, a total of 2cc or 20mg of dexamethasone was injected without incident. The procedure tolerated the procedure well without signs or symptoms of complications prior to transfer to the recovery area continued monitoring without incident.The patient was then transferred to the recovery area where they were observed for an appropriate time after the injection. The patient reported a VAS score of 7 prior to the procedure and a post-procedure VAS of 0. Total Fluoroscopy Time: 17.3 seconds Total Conscious Sedation Time: 24min POST OP INSTRUCTIONS The patient was provided a Pain Log to continue to record their response to the target-specific procedure prior to follow-up visit with their referring physician. Additionally, specific post-injection care instructions and a contact number to our office were provided if concerns arise regarding possible complications associated with the procedure are suspected. Joe Mazariegos DO Complications: none
--- NOTE | 2019-02-19 10:39 | PC.NURSE ---
Pt returned from procedure awake and alert and able to transfer to chair from w/c without problems. Resumed monitoring from Alicia PIERCE.
== END 2019-02-19 10:58 ==
PROVIDERS: Visit Provider Physical Medicine & Rehabilitation
DX: M48.04 Spinal stenosis, thoracic region (principal); M51.14 Intervertebral disc disorders with radiculopathy, thoracic region
CPT/HCPCS: 64479; 99152; J1100; J2250; J3010

== ENCOUNTER 2019-05-16 09:10 | Outpatient (CLI) | payer MEDICARE, SELFPAY ==
[2019-05-16] VITALS (8 sets, daily range): BP systolic 98–130; BP diastolic 62–85; PULSE 84–94; RESP 16; TEMP 36.5; O2SAT 96–100
--- NOTE | 2019-05-16 09:13 | DI.RAD.S_ITS ---
PROCEDURE: PAIN C/T TRANFORAMINAL INJECT INDICATIONS: INTERVERTEBRAL DISC DEGENERATION FINDINGS: Fluoroscopic spot filming was performed to verify placement of spinal needles at the T8-T9 level(s), as labeled on the films. Appropriate location(s) of the needle tip(s) was confirmed by injection of iodinated contrast. Dictated by: Trenton Bronson M.D. on 05/16/2019 at 12:13 Approved by: Trenton Bronson M.D. on 05/16/2019 at 12:13
[2019-05-16] MEDS: fentaNYL 100 MCG/2 ML INJ 50 MCG IV (10:21)
[2019-05-16] MEDS: MIDAZOLAM 5 MG/5 ML VIAL IV (10:21)
[2019-05-16] MEDS: BUPIVACAINE 0.25% (PF) VIAL 2 ML INJ (10:28)
[2019-05-16] MEDS: DEXAMETHASONE 10 MG/ML VIAL 30 MG INJ (10:29)
[2019-05-16] MEDS: IOPAMIDOL 15 ML VIAL 3 ML INJ (10:29)
--- NOTE | 2019-05-16 10:37 | PC.NURSE ---
Pt tolerated procedure well. Able to get pt off the table with standby assist. Transferred pt via wheelchair to pre procedure room for continued monitoring with Alicia PIERCE.
--- NOTE | 2019-05-16 10:41 | P.PCN_ITS ---
Procedures Date/Time Date of procedure: 05/16/19 Time of procedure: 10:40 General Procedure description: PREOP DIAGNOSIS 1. FORMAINAL STENOSIS WITH LE SYMPTOMS, POST OP DIAGNOSIS 1. FORMAINAL STENOSIS WITH LE SYMPTOMS, PROCEDURES 1. FLUOROSCOPICALLY GUIDED CONTRAST CONTROLLED TRANSFORAMINAL EPIDURAL STEROID INJECTION - RIGHT T8/9 TFESI PHYSICIAN: Joe Mazariegos, DO INDICATIONS Ariana is referred by Dr. Nicolas for treatment of Foraminal Stenosis with Right thoracic Symptoms FINDINGS Foraminal Nerve Root Compression secondary to disc disease and facet hypertrophy DESCRIPTION OF PROCEDURE Following review of allergy and review of potential side effects and complications, including, but not necessarily limited to, infection, allergic reaction, local tissue breakdown, stroke, temporary or permanent nerve injury, paralysis, and possible , the patient indicated that the patient understood and agreed to proceed. An informed consent document was signed by the patient, witnessed by a nurse, and placed in the patient's chart. Additionally, other treatment options including medications, modalities, and physical therapy were reviewed with the patient. After review of previous anaesthesic history and IV conscious sedation the patient was deemed safe to proceed with todays procedure with IV conscious sedation as ASA class II designation. Safety time-out was performed to confirm patient ID, procedure to be performed and site of procedure. IV sedation was accomplished with a combination of 2mg of Versed and 50mcg of Fentanyl was administered by the RN after DO order, titrated to patient comfort during the course of the procedure while the patient remained responsive to all verbal commands In the prone position following sterile prep and drape of the lumbar region, the right T8-9 posterior neuroforamen was identified fluoroscopically. The skin was anesthetized via a 25-gauge 1.5-inch needle with 1% lidocaine solution. At this point, a 25-gauge 3.5-inch spinal needle was atraumatically introduced and adv anced under fluoroscopic guidance through the posterior right T8-9 neuroforamen to approximately the anterior aspect of the canal. Depth was confirmed on lateral view. Following negative aspiration, injection of approximately 1.5 cc of Isovue 200 under live fluoroscopy in the AP view confirmed excellent flow along the nerve root, into the epidural space without vascular or intrathecal uptake observed Radiological data, including multiple fluoroscopic views reveal the needle placement in the right T8/9 posterior neuroforamen. Subsequent views show flow of contrast material flowing superiorly and inferiorly along the nerve root confirming epidural flow. Subsequently, a test dose of 1.5 cc of 1% lidocaine solution was administered and patient was observed for signs or symptoms of complications, including abdominal pain, shortness of breath, bilateral upper or lower extremity weakness, nausea and vomiting, prior to steroid injection. At this point, a total of 2cc or 20mg of dexamethasone was injected without incident. The procedure tolerated the procedure well without signs or symptoms of complications prior to transfer to the recovery area continued monitoring without incident.The patient was then transferred to the recovery area where they were observed for an appropriate time after the injection. The patient reported a VAS score of 7 prior to the procedure and a post- procedure VAS of 0. Total Fluoroscopy Time: 17.3 seconds Total Conscious Sedation Time: 24min POST OP INSTRUCTIONS The patient was provided a Pain Log to continue to record their response to the target-specific procedure prior to follow-up visit with their referring physician. Additionally, specific post-injection care instructions and a contact number to our office were provided if concerns arise regarding possible complications associated with the procedure are suspected. Joe Mazariegos DO Complications: none
--- NOTE | 2019-05-16 10:51 | PC.NURSE ---
ACCEPTED CARE OF PT IN POST PROC AREA IN STABLE CONDITION
== END 2019-05-16 11:14 | disposition home or self-care (01) ==
LOC: RAD 09:12
PROVIDERS: PCP Family Medicine; Visit Provider Physical Medicine & Rehabilitation
DX: M48.04 Spinal stenosis, thoracic region (principal); M51.14 Intervertebral disc disorders with radiculopathy, thoracic region
CPT/HCPCS: 64479; 99152; J1100; J2250; J3010

== ENCOUNTER → 2019-05-24 13:13 | Outpatient (CLI) | payer MEDICARE, SELFPAY ==
--- NOTE | 2019-05-24 13:16 | DI.RAD.S_ITS ---
PROCEDURE: XR LUMBAR SPINE MIN 4V INDICATIONS: Right-sided low back pain with radiculopathy TECHNIQUE: 5 views of the lumbar spine were acquired. COMPARISON: None. FINDINGS: Bones: No fracture or focal osseous destruction. Multilevel degenerative endplate sclerosis and spurring. Diffuse facet arthropathy. Levocurvature. Severe narrowing of the L2-L3 disc space, L4-L5 disc space. Moderate narrowing of the remaining lower thoracic and lumbar disc spaces. Grade 1 anterolisthesis of L3 on L4. Soft tissues: Overlying bowel gas pattern is normal. Scattered vascular calcifications seen in the aorta. No suspicious soft tissue calcifications. Oblique images: No pars defects. IMPRESSION: Levoscoliosis. Grade 1 anterolisthesis of L3 on L4. Severe multilevel lumbar spondylosis and facet disease Dictated by: Trenton Bronson M.D. on 05/24/2019 at 15:06 Approved by: Trenton Bronson M.D. on 05/24/2019 at 15:09
--- NOTE | 2019-05-24 13:16 | DI.MRI.S_ITS ---
PROCEDURE: MR LUMBAR SPINE WO CON INDICATIONS: Right-sided low back pain with radiculopathy TECHNIQUE: Noncontrast sagittal T1 spin echo and T2 fast echo, sagittal STIR, axial T1 and T2 fast spin echo through the lumbar spine. In cases with scoliosis, additional coronal T2 fast spin echo may be performed. COMPARISON: [facility], CR, XR LUMBAR SPINE MIN 4V, 05/24/2019, 13:15. FINDINGS: Image quality: Excellent. Alignment and Curvature: There is trace retrolisthesis of L1 on L2, L2 on L3, trace anterolisthesis of L3 on L4 and L5 on S1. Bone Marrow: Marrow is of normal overall signal. Increased T1 and T2 signal is present within the L1 and L3 vertebral bodies most consistent with hemangioma. There is minimal mild reactive endplate changes at L2-3. No acute vertebral body compression fractures. Spinal Cord: Conus medullaris terminates at the L2 level. Visualized cord demonstrates normal signal and size. Paraspinous Soft Tissues: No paravertebral masses. Discs: Moderate to severe disc desiccation is present of the lumbar spine most severe at L2-3 and L4-5. L1-L2: No disc bulge or spinal stenosis. Moderate to severe right and mild left foraminal narrowing with facet and ligamentum flavum hypertrophy. L2-L3: Mild disc bulge with mild spinal stenosis. Moderate bilateral foraminal narrowing with facet and ligamentum flavum hypertrophy. L3-L4: Mild disc bulge with severe spinal stenosis and canal compression. Moderate to severe left and moderate right foraminal narrowing with facet and ligamentum flavum hypertrophy. L4-L5: Mild disc bulge with severe spinal stenosis and slight canal compression. Severe bilateral foraminal narrowing particularly to the lateral recesses bilaterally. Mild appearance of nerve root flattening is noted predominantly on the left. L5-S1: Mild disc bulge with moderate spinal stenosis. Broad-based bulge is also causing compromise of the right lateral recess. There is severe bilateral foraminal narrowing with slight flattening noted on the right. Facet and ligamentum flavum hypertrophy are present. IMPRESSION: 1. Multilevel disc bulges. 2. Multilevel spinal stenosis severe at L3-4 and L4-5 secondary to disc bulge with contributing effect of facet/ligamentum flavum arthropathy. 3. Multilevel foraminal narrowing most severe at L4-5 and L5-S1 secondary to facet arthropathy. Dictated by: Teetee Purcell M.D. on 05/24/2019 at 16:43 Approved by: Teetee Purcell M.D. on 05/24/2019 at 16:48
== END ==
PROVIDERS: PCP Family Medicine; Visit Provider Physical Medicine & Rehabilitation
DX: M47.27 Other spondylosis with radiculopathy, lumbosacral region (principal); M51.26 Other intervertebral disc displacement, lumbar region
CPT/HCPCS: 72110; 72148

== ENCOUNTER 2019-08-20 08:46 | Outpatient (CLI) | payer MEDICARE, SELFPAY ==
[2019-08-20] VITALS (9 sets, daily range): BP systolic 103–139; BP diastolic 42–78; PULSE 59–70; RESP 16–18; TEMP 36.1; O2SAT 93–99
--- NOTE | 2019-08-20 08:47 | DI.RAD.S_ITS ---
PROCEDURE: PAIN C/T TRANFORAMINAL INJECT INDICATIONS: INTERVERTEBRAL DISC DISPLACEMENT FINDINGS: Fluoroscopic spot filming was performed to verify placement of spinal needles at the T8-T9 right-sided level(s), as labeled on the films. Appropriate location(s) of the needle tip(s) was confirmed by injection of iodinated contrast. IMPRESSION: Successful T8-T9 right-sided needle tip localization for transforaminal epidural steroid injection. Dictated by: Lester Liang M.D. on 08/20/2019 at 11:28 Approved by: Lester Liang M.D. on 08/20/2019 at 11:28
[2019-08-20] MEDS: MIDAZOLAM 5 MG/5 ML VIAL IV (09:53)
[2019-08-20] MEDS: fentaNYL 100 MCG/2 ML INJ 50 MCG IV (09:53)
[2019-08-20] MEDS: BUPIVACAINE 0.25% (PF) VIAL 2 ML INJ (10:00)
[2019-08-20] MEDS: IOPAMIDOL 15 ML VIAL 3 ML INJ (10:01)
[2019-08-20] MEDS: DEXAMETHASONE 10 MG/ML VIAL 30 MG INJ (10:01)
--- NOTE | 2019-08-20 10:07 | PC.NURSE ---
ASSISTING PT OFF TABLE AND TRANSPORTING TO POST PROC AREA IN STABLE CONDITION.
--- NOTE | 2019-08-20 10:11 | P.PCN_ITS ---
Procedures Date/Time Date of procedure: 08/20/19 Time of procedure: 10:11 General Procedure description: PREOP DIAGNOSIS 1. FORMAINAL STENOSIS WITH LE SYMPTOMS, POST OP DIAGNOSIS 1. FORMAINAL STENOSIS WITH LE SYMPTOMS, PROCEDURES 1. FLUOROSCOPICALLY GUIDED CONTRAST CONTROLLED TRANSFORAMINAL EPIDURAL STEROID INJECTION - RIGHT T8/9 TFESI PHYSICIAN: Joe Mazariegos, DO INDICATIONS Ariana is referred by Dr. Nicolas for treatment of Foraminal Stenosis with Right thoracic Symptoms FINDINGS Foraminal Nerve Root Compression secondary to disc disease and facet hypertrophy DESCRIPTION OF PROCEDURE Following review of allergy and review of potential side effects and complications, including, but not necessarily limited to, infection, allergic reaction, local tissue breakdown, stroke, temporary or permanent nerve injury, paralysis, and possible , the patient indicated that the patient understood and agreed to proceed. An informed consent document was signed by the patient, witnessed by a nurse, and placed in the patient's chart. Additionally, other treatment options including medications, modalities, and physical therapy were reviewed with the patient. After review of previous anaesthesic history and IV conscious sedation the patient was deemed safe to proceed with todays procedure with IV conscious sedation as ASA class II designation. Safety time-out was performed to confirm patient ID, procedure to be performed and site of procedure. IV sedation was accomplished with a combination of 2mg of Versed and 50mcg of Fentanyl was administered by the RN after DO order, titrated to patient comfort during the course of the procedure while the patient remained responsive to all verbal commands In the prone position following sterile prep and drape of the lumbar region, the right T8-9 posterior neuroforamen was identified fluoroscopically. The skin was anesthetized via a 25-gauge 1.5-inch needle with 1% lidocaine solution. At this point, a 25-gauge 3.5-inch spinal needle was atraumatically introduced and adv anced under fluoroscopic guidance through the posterior right T8-9 neuroforamen to approximately the anterior aspect of the canal. Depth was confirmed on lateral view. Following negative aspiration, injection of approximately 1.5 cc of Isovue 200 under live fluoroscopy in the AP view confirmed excellent flow along the nerve root, into the epidural space without vascular or intrathecal uptake observed Radiological data, including multiple fluoroscopic views reveal the needle placement in the right T8/9 posterior neuroforamen. Subsequent views show flow of contrast material flowing superiorly and inferiorly along the nerve root confirming epidural flow. Subsequently, a test dose of 1.5 cc of 1% lidocaine solution was administered and patient was observed for signs or symptoms of complications, including abdominal pain, shortness of breath, bilateral upper or lower extremity weakness, nausea and vomiting, prior to steroid injection. At this point, a total of 3cc or 30mg of dexamethasone was injected without incident. The procedure tolerated the procedure well without signs or symptoms of complications prior to transfer to the recovery area continued monitoring without incident.The patient was then transferred to the recovery area where they were observed for an appropriate time after the injection. The patient reported a VAS score of 7 prior to the procedure and a post- procedure VAS of 0. Total Fluoroscopy Time: 17.3 seconds Total Conscious Sedation Time: 24min POST OP INSTRUCTIONS The patient was provided a Pain Log to continue to record their response to the target-specific procedure prior to follow-up visit with their referring physician. Additionally, specific post-injection care instructions and a contact number to our office were provided if concerns arise regarding possible complications associated with the procedure are suspected. Joe Mazariegos DO Complications: none
== END 2019-08-20 10:37 | disposition home or self-care (01) ==
LOC: RAD 08:47
PROVIDERS: PCP Family Medicine; Visit Provider Physical Medicine & Rehabilitation
DX: M48.04 Spinal stenosis, thoracic region (principal); M51.14 Intervertebral disc disorders with radiculopathy, thoracic region
CPT/HCPCS: 64479; 99152; J1100; J2250; J3010

== ENCOUNTER 2019-11-21 09:01 | Outpatient (CLI) | payer MEDICARE, SELFPAY ==
[2019-11-21] VITALS (9 sets, daily range): BP systolic 111–129; BP diastolic 52–84; PULSE 67–101; RESP 16–18; TEMP 36.1; O2SAT 95–100
--- NOTE | 2019-11-21 09:02 | DI.RAD.S_ITS ---
PROCEDURE: PAIN C/T TRANFORAMINAL INJECT INDICATIONS: RADICULOPTHY FINDINGS: Fluoroscopic spot filming was performed to verify placement of spinal needles at the T8-T9 level(s), as labeled on the films. Appropriate location(s) of the needle tip(s) was confirmed by injection of iodinated contrast. IMPRESSION: For fluoroscopy for pain management. Dictated by: Blake Coy M.D. on 11/21/2019 at 11:43 Approved by: Blake Coy M.D. on 11/21/2019 at 11:44
[2019-11-21] MEDS: MIDAZOLAM 5 MG/5 ML VIAL IV (10:11)
[2019-11-21] MEDS: fentaNYL 100 MCG/2 ML INJ 50 MCG IV (10:12)
[2019-11-21] MEDS: BUPIVACAINE 0.25% (PF) VIAL 2 ML INJ (10:20)
[2019-11-21] MEDS: DEXAMETHASONE 10 MG/ML VIAL 30 MG INJ (10:21)
[2019-11-21] MEDS: IOPAMIDOL 15 ML VIAL 3 ML INJ (10:21)
--- NOTE | 2019-11-21 10:27 | PC.NURSE ---
ASSISTING PT OFF TABLE AND TRANSPORTING TO POST PROC AREA IN STABLE CONDITION. PASSING RN CARE OF PT OFF TO GWEN Che RN.
--- NOTE | 2019-11-21 10:34 | P.PCN_ITS ---
Procedures Date/Time Date of procedure: 11/21/19 Time of procedure: 10:34 General Procedure description: PREOP DIAGNOSIS 1. FORMAINAL STENOSIS WITH LE SYMPTOMS, POST OP DIAGNOSIS 1. FORMAINAL STENOSIS WITH LE SYMPTOMS, PROCEDURES 1. FLUOROSCOPICALLY GUIDED CONTRAST CONTROLLED TRANSFORAMINAL EPIDURAL STEROID INJECTION - RIGHT T8/9 TFESI PHYSICIAN: Joe Mazariegos, DO INDICATIONS Ariana is referred by Dr. Nicolas for treatment of Foraminal Stenosis with Right thoracic Symptoms FINDINGS Foraminal Nerve Root Compression secondary to disc disease and facet hypertrophy DESCRIPTION OF PROCEDURE Following review of allergy and review of potential side effects and complications, including, but not necessarily limited to, infection, allergic reaction, local tissue breakdown, stroke, temporary or permanent nerve injury, paralysis, and possible , the patient indicated that the patient understood and agreed to proceed. An informed consent document was signed by the patient, witnessed by a nurse, and placed in the patient's chart. Additionally, other treatment options including medications, modalities, and physical therapy were reviewed with the patient. After review of previous anaesthesic history and IV conscious sedation the patient was deemed safe to proceed with todays procedure with IV conscious sedation as ASA class II designation. Safety time-out was performed to confirm patient ID, procedure to be performed and site of procedure. IV sedation was accomplished with a combination of 1mg of Versed and 50mcg of Fentanyl was administered by the RN after DO order, titrated to patient comfort during the course of the procedure while the patient remained responsive to all verbal commands In the prone position following sterile prep and drape of the lumbar region, the right T8-9 posterior neuroforamen was identified fluoroscopically. The skin was anesthetized via a 25-gauge 1.5-inch needle with 1% lidocaine solution. At this point, a 25-gauge 3.5-inch spinal needle was atraumatically introduced and adv anced under fluoroscopic guidance through the posterior right T8-9 neuroforamen to approximately the anterior aspect of the canal. Depth was confirmed on lateral view. Following negative aspiration, injection of approximately 1.5 cc of Isovue 200 under live fluoroscopy in the AP view confirmed excellent flow along the nerve root, into the epidural space without vascular or intrathecal uptake observed Radiological data, including multiple fluoroscopic views reveal the needle placement in the right T8/9 posterior neuroforamen. Subsequent views show flow of contrast material flowing superiorly and inferiorly along the nerve root confirming epidural flow. Subsequently, a test dose of 1.5 cc of 1% lidocaine solution was administered and patient was observed for signs or symptoms of complications, including abdominal pain, shortness of breath, bilateral upper or lower extremity weakness, nausea and vomiting, prior to steroid injection. At this point, a total of 3cc or 30mg of dexamethasone was injected without incident. The procedure tolerated the procedure well without signs or symptoms of complications prior to transfer to the recovery area continued monitoring without incident.The patient was then transferred to the recovery area where they were observed for an appropriate time after the injection. The patient reported a VAS score of 7 prior to the procedure and a post- procedure VAS of 0. Total Fluoroscopy Time: 16 seconds Total Conscious Sedation Time: 24min POST OP INSTRUCTIONS The patient was provided a Pain Log to continue to record their response to the target-specific procedure prior to follow-up visit with their referring physician. Additionally, specific post-injection care instructions and a contact number to our office were provided if concerns arise regarding possible complications associated with the procedure are suspected. Joe Mazariegos DO Complications: none
--- NOTE | 2019-11-21 11:07 | PC.NURSE ---
at 1032 returned from procedure via w/c , able to transfer self to recliner, ice water provided and tolerated, pain free, assumed care from Alicia.
== END 2019-11-21 10:46 | disposition home or self-care (01) ==
PROVIDERS: PCP Family Medicine; Referring Provider Family Medicine; Visit Provider Physical Medicine & Rehabilitation
DX: M48.04 Spinal stenosis, thoracic region (principal); M51.14 Intervertebral disc disorders with radiculopathy, thoracic region
CPT/HCPCS: 64479; 99152; J1100; J2250; J3010

== ENCOUNTER → 2020-02-19 13:13 | Outpatient (CLI) | payer MEDICARE, SELFPAY ==
--- NOTE | 2020-02-19 13:15 | DI.MRI.S_ITS ---
PROCEDURE: MR THORACIC SPINE WO CON INDICATIONS: thoracic hnp TECHNIQUE: Noncontrast sagittal T1 spine echo and T2 fast spin echo, sagittal STIR, axial T1 and T2 fast spin echo through the thoracic spine. COMPARISON: [facility], , T-SPINE WITHOUT CONTRAST, 11/25/2016, 10:35. FINDINGS: Image quality: Excellent. Alignment and Curvature: There is mild dextroscoliotic bony alignment. Bone Marrow: Marrow is of normal overall signal except for the presence of several vertebral body hemangiomas, best seen at the L1 vertebral body marrow space centered to the right of midline. No acute vertebral body compression fractures. Spinal Cord: Visualized spinal cord is normal in size and signal. Paraspinous Soft Tissues: No paravertebral masses. No disc herniation is found. Miscellaneous: On axial images, central canal and foramina appear widely patent at all scanned levels. IMPRESSION: Mild convex rightward scoliosis centered at the midthoracic spine. Previously present degenerative disc disease and facet osteoarthritis seen in November 2016 does not appear to have significantly worsened. A disc herniation is not found. 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 on 02/19/2020 at 14:58 Approved by: Lester Laing M.D. on 02/19/2020 at 15:06
== END ==
PROVIDERS: PCP Family Medicine; Referring Provider Physical Medicine & Rehabilitation; Visit Provider Physical Medicine & Rehabilitation
DX: M51.14 Intervertebral disc disorders with radiculopathy, thoracic region (principal); M47.24 Other spondylosis with radiculopathy, thoracic region; M41.84 Other forms of scoliosis, thoracic region
CPT/HCPCS: 72146

== ENCOUNTER → 2020-03-09 09:31 | Outpatient (CLI) | payer MEDICARE, SELFPAY ==
[2020-03-10 15:46] LABS: COVID19 Sendout NOT DETECTED (Not Detect)
== END ==
PROVIDERS: PCP Family Medicine; Visit Provider Registered Nurse
DX: Z01.812 Encounter for preprocedural laboratory examination (principal)
CPT/HCPCS: 87635

== ENCOUNTER 2020-03-12 08:40 | Outpatient (CLI) | payer MEDICARE, SELFPAY ==
[2020-03-12] VITALS (9 sets, daily range): BP systolic 121–154; BP diastolic 61–83; PULSE 63–99; RESP 12–16; TEMP 36.3; O2SAT 95–100
--- NOTE | 2020-03-12 08:43 | DI.RAD.S_ITS ---
PROCEDURE: PAIN C/T TRANFORAMINAL INJECT INDICATIONS: RADICULOPATHY FINDINGS: Fluoroscopic spot filming was performed to verify placement of spinal needles at the T8-T9 right-sided level(s), as labeled on the films. Appropriate location(s) of the needle tip(s) was confirmed by injection of iodinated contrast. IMPRESSION: Successful needle tip localization for transforaminal steroid injection at the T8-T9 neural foramen level. Dictated by: Lester Liang M.D. on 03/12/2020 at 10:42 Approved by: Lester Liang M.D. on 03/12/2020 at 10:42
[2020-03-12] MEDS: fentaNYL 100 MCG/2 ML INJ 50 MCG IV (10:07)
[2020-03-12] MEDS: MIDAZOLAM 5 MG/5 ML VIAL IV (10:08)
[2020-03-12] MEDS: DEXAMETHASONE 10 MG/ML VIAL 20 MG INJ (10:17)
[2020-03-12] MEDS: IOPAMIDOL 15 ML VIAL 3 ML INJ (10:17)
[2020-03-12] MEDS: BUPIVACAINE 0.25% (PF) VIAL 2 ML INJ (10:19)
--- NOTE | 2020-03-12 10:21 | PC.NURSE ---
ASSISTING PT OFF TABLE AND TRANSPORTING TO POST PROC AREA IN STABLE CONDITION. PASSING RN CARE OF PT OFF TO KARI FERNANDES.
--- NOTE | 2020-03-12 10:24 | P.PCN_ITS ---
Procedures Date/Time Date of procedure: 03/12/20 Time of procedure: 10:24 General Procedure description: PREOP DIAGNOSIS 1. FORMAINAL STENOSIS WITH LE SYMPTOMS, POST OP DIAGNOSIS 1. FORMAINAL STENOSIS WITH LE SYMPTOMS, PROCEDURES 1. FLUOROSCOPICALLY GUIDED CONTRAST CONTROLLED TRANSFORAMINAL EPIDURAL STEROID INJECTION - RIGHT T8/9 TFESI PHYSICIAN: Joe Mazariegos, DO INDICATIONS Ariana is referred by for treatment of Foraminal Stenosis with Right thoracic Symptoms FINDINGS Foraminal Nerve Root Compression secondary to disc disease and facet hypertrophy DESCRIPTION OF PROCEDURE Following review of allergy and review of potential side effects and complications, including, but not necessarily limited to, infection, allergic reaction, local tissue breakdown, stroke, temporary or permanent nerve injury, paralysis, and possible , the patient indicated that the patient understood and agreed to proceed. An informed consent document was signed by the patient, witnessed by a nurse, and placed in the patient's chart. Additionally, other treatment options including medications, modalities, and physical therapy were reviewed with the patient. After review of previous anaesthesic history and IV conscious sedation the patient was deemed safe to proceed with todays procedure with IV conscious sedation as ASA class II designation. Safety time-out was performed to confirm patient ID, procedure to be performed and site of procedure. IV sedation was accomplished with a combination of 2mg of Versed and 50mcg of Fentanyl was administered by the RN after DO order, titrated to patient comfort during the course of the procedure while the patient remained responsive to all verbal commands In the prone position following sterile prep and drape of the lumbar region, the right T8-9 posterior neuroforamen was identified fluoroscopically. The skin was anesthetized via a 25-gauge 1.5-inch needle with 1% lidocaine solution. At this point, a 25-gauge 3.5-inch spinal needle was atraumatically introduced and adva nced under fluoroscopic guidance through the posterior right T8-9 neuroforamen to approximately the anterior aspect of the canal. Depth was confirmed on lateral view. Following negative aspiration, injection of approximately 1.5 cc of Isovue 200 under live fluoroscopy in the AP view confirmed excellent flow along the nerve root, into the epidural space without vascular or intrathecal uptake observed Radiological data, including multiple fluoroscopic views reveal the needle placement in the right T8/9 posterior neuroforamen. Subsequent views show flow of contrast material flowing superiorly and inferiorly along the nerve root confirming epidural flow. Subsequently, a test dose of 1.5 cc of 1% lidocaine solution was administered and patient was observed for signs or symptoms of complications, including abdominal pain, shortness of breath, bilateral upper or lower extremity weakness, nausea and vomiting, prior to steroid injection. At this point, a total of 3cc or 30mg of dexamethasone was injected without incident. The procedure tolerated the procedure well without signs or symptoms of complications prior to transfer to the recovery area continued monitoring without incident.The patient was then transferred to the recovery area where they were observed for an appropriate time after the injection. The patient reported a VAS score of 7 prior to the procedure and a post- procedure VAS of 0. Total Fluoroscopy Time: 13 seconds Total Conscious Sedation Time: 24min POST OP INSTRUCTIONS The patient was provided a Pain Log to continue to record their response to the target-specific procedure prior to follow-up visit with their referring physician. Additionally, specific post-injection care instructions and a contact number to our office were provided if concerns arise regarding possible complications associated with the procedure are suspected. Joe Mazariegos DO Complications: none
== END 2020-03-12 10:45 | disposition home or self-care (01) ==
LOC: RAD 08:42
PROVIDERS: PCP Family Medicine; Referring Provider Physical Medicine & Rehabilitation; Visit Provider Physical Medicine & Rehabilitation
DX: M48.04 Spinal stenosis, thoracic region (principal); M51.14 Intervertebral disc disorders with radiculopathy, thoracic region
CPT/HCPCS: 64479; 99152; J1100; J2250; J3010

== ENCOUNTER → 2020-06-08 11:53 | Outpatient (CLI) | payer MEDICARE, SELFPAY ==
[2020-06-09 18:02] LABS: COVID19 Sendout Not Detected (Not Detect)
== END ==
PROVIDERS: PCP Family Medicine; Visit Provider Nurse Practitioner
DX: Z11.59 Encounter for screening for other viral diseases (principal)
CPT/HCPCS: 87635

== ENCOUNTER 2020-06-11 08:52 | Outpatient (CLI) | payer MEDICARE, SELFPAY ==
[2020-06-11 09:22] VITALS: BP 98/70; PULSE 113; RESP 20; TEMP 36.2; O2SAT 97
[2020-06-11 10:06] VITALS: BP 115/82; PULSE 110; RESP 17; O2SAT 99
[2020-06-11 10:11] VITALS: BP 95/76; PULSE 159; RESP 19; O2SAT 98
[2020-06-11 10:14] VITALS: BP 119/85; PULSE 161; RESP 21; O2SAT 98
--- NOTE | 2020-06-11 10:55 | PC.NURSE ---
Pt was taken to procedure room but after being hooked up on monitors, it was discovered that she was in sinus tach, and hypotensive. Pt was returned to pre proc room and monitoring was resumed per protocol. HR 160, BP 128/palp, stats [address] Mazariegos went to ED to speak to Dr on duty and we were then advised to bring pt directly to them. Report was given to Dr Moy.
--- NOTE | 2020-06-11 16:21 | PC.NURSE ---
Patient reported that she had been having some dizziness the past week. She denied any at this time. Was assisted up on the table into prone position, vital signs were taken and she noted to be in A Fib with HR 150-160, and hypotensive, MD assessed and ultimately unsafe to continue with procedure, Patient was sat up on side of bed and did c/o feeling slightly dizzy. She was steady on feet and transferred to the w/c back to to post room and Dr Mazariegos consulted with ER MD and Anoop transferred her to the ER. She denied chest pain and heart palpations. Did have SOB with exertion.
== END 2020-06-11 10:45 | disposition other institution (70) ==
LOC: RAD 08:54
PROVIDERS: PCP Family Medicine; Referring Provider Family Medicine; Visit Provider Physical Medicine & Rehabilitation
DX: M54.14 Radiculopathy, thoracic region (principal); M51.34 Other intervertebral disc degeneration, thoracic region; Z53.9 Procedure and treatment not carried out, unspecified reason
CPT/HCPCS: J1100; J2250; J3010

== ENCOUNTER 2020-06-11 10:28 | Observation (INO) | payer MEDICARE, SELFPAY ==
[2020-06-11] VITALS (52 sets, daily range): BP systolic 84–189; BP diastolic 55–105; PULSE 86–162; RESP 15–52; TEMP 36.2–37.1; O2SAT 89–99; BMI 32.9; BMI 31.7
--- NOTE | 2020-06-11 10:40 | DI.RAD.S_ITS ---
PROCEDURE: XR CHEST 1V INDICATIONS: chest pain TECHNIQUE: One view of the chest was acquired. COMPARISON: [facility], , CHEST 1 VIEW, 12/14/2017, 10:29. FINDINGS: Surgical changes and devices: None. Lungs and pleura: Lungs are clear. No pleural effusions or pneumothorax. Mediastinum: Mediastinal contours appear normal. Heart size is normal. Bones and chest wall: No suspicious bony lesions. Overlying soft tissues appear unremarkable. IMPRESSION: Normal for age, source of current chest pain symptoms is not seen. Dictated by: Lester Liang M.D. on 06/11/2020 at 11:26 Approved by: Lester Liang M.D. on 06/11/2020 at 11:26
--- NOTE | 2020-06-11 10:47 | ED_ITS ---
HPI - Arrhythmia/Palpitations General Chief Complaint: Arrhythmia/Palpitations Stated Complaint: Afib Time Seen by Provider: 06/11/20 10:32 Source: patient Mode of arrival: Ambulatory Limitations: no limitations History of Present Illness HPI narrative: Patient is an 79-year-old female with paroxysmal atrial fibrill ation presenting with AFib with RVR. She actually came in for a back injection and was found to be AFib with RVR and possibly hypotensive as well. Patient states that she currently has no symptoms she denies any chest pain her palpitations dizziness lightheadedness or shortness of breath or jaw pain. She however says that maybe last week she was noticing that she was little bit dizzy and having some difficulty walking but denies any of those symptoms now. She is not on aspirin or any anticoagulation medication. Onset (ago): unknown Arrhythmia history: atrial fibrillation Related Data Home Medications Medication Instructions Recorded Confirmed [KRILL OIL] 3 cap PO QDAY #0 12/14/17 04/15/20 [TURMERIC] 1 cap PO QDAY #0 12/14/17 04/15/20 benazepril 40 mg PO QDAY #0 12/14/17 06/11/20 cetirizine 10 mg PO QDAY #0 12/14/17 06/11/20 clobetasol 1 pako TOPICAL QDAY #0 12/14/17 04/15/20 coenzyme Q10 [Co Q-10] 3 cap PO QDAY #0 12/14/17 04/15/20 diltiazem HCl 1 cap PO Q DAY PRN PRN #0 12/14/17 06/11/20 docusate sodium 100 - 200 mg PO QDAYP PRN #0 12/14/17 04/15/20 estradiol 0.5 mg PO QDAY #0 12/14/17 04/15/20 magnesium oxide 250 mg PO QDAY #0 12/14/17 04/15/20 multivitamin [Multiple Vitamins] 1 tab PO QDAY #0 12/14/17 04/15/20 vitamin B complex [B 1 tab PO QDAY #0 12/14/17 04/15/20 Complex-Vitamin B12] Previous Rx's Medication Instructions Recorded diazepam 10 mg tablet 5 mg PO TID #30 tab 11/01/18 celecoxib 200 mg capsule 200 mg PO QDAY #90 cap 11/06/19 methylprednisolone 4 mg tablets in See Rx Instructions PO PER PKG DIR 01/29/20 a dose pack #21 each gabapentin 300 mg capsule 300 mg PO .COMPLEX #540 cap 04/09/20 cyclobenzaprine 10 mg tablet 10 mg PO TID #90 tab 05/28/20 cyclobenzaprine 10 mg tablet 10 mg PO TID #90 tab 05/28/20 Allergies Allergy/AdvReac Type Severity Reaction Status Date / Time codeine [CODEINE] Allergy Unknown CHEST Verified 06/11/20 09:17 PRESSURE Review of Systems Review of Systems Narrative: GENERAL: Denies chills, fatigue, malaise, fever, sweats, travel HEENT: Denies sinus pain, ear pain, sore throat, difficulty swallowing, neck pain RESPIRATORY: Denies dyspnea, cough, wheezing, hemoptysis, sputum. CARDIOVASCULAR: See HPI GASTROINTESTINAL: Denies nausea, vomiting, abdominal pain, diarrhea, constipation, melena. : Denies dysuria, frequency, incontinence, hematuria, urinary retention, flank pain. MUSCULOSKELETAL: Denies weakness, joint pain, or bony pain SKIN: No rash, no erythema, no pruritus NEUROLOGIC: Denies weakness, dizziness, headache, numbness, change in speech, confusion PSYCHIATRIC: No concerning psychosocial issues. 12 point review of systems is negative except for those stated above and HPI Patient History Medical History Atrial fibrillation (Chronic) Surgical History H/O: hysterectomy (Chronic) Hx of appendectomy (Chronic) Family History Unknown No pertinent family history Social History Smoking Status: Former smoker alcohol intake: current Smoking Status: Former smoker Substance Use Type: does not use Exam Initial Vital Signs Initial Vital Signs: Vital Signs Temperature 97.6 F 06/11/20 10:32 Pulse Rate 156 H 06/11/20 10:32 Respiratory Rate 20 06/11/20 10:32 Blood Pressure 138/80 06/11/20 10:32 Pulse Oximetry 97 06/11/20 10:32 GENERAL: Alert well-appearing elderly female appears younger than stated age and in no acute distress. HEENT: Head atraumatic,EOMI, pupils reactive, face symmetric, moist mucous mem branes CARDIOVASCULAR: Irregular tachycardic no murmurs RESPIRATORY: Breath sounds equal bilaterally, no wheezes rales or rhonchi. ABDOMEN: Soft, nontender. Normoactive bowel sounds all 4 quadrants. No guarding or rebound. EXTREMITIES: Normal range of motion, no clubbing or edema. Neurovascularly intact NEUROLOGICAL: Alert and oriented x4.Normal gait and speech. Cranial nerves II through XII grossly intact. SKIN: Warm, dry, no laceration, no petechiae, no rashes or lesions. Scores ABCD2 Citation: Lancet. 2006Oct 28;369(0250):283-74. Validation and refinement of scores to predict very early stroke risk after transient ischaemic attack. Dariusz SC1, Mike PM, [place], Brent MF, Gila JS, Addison [place], Noe S. Course Orders Ordered: ED Orders 06/11/20 10:30 EKG-12 Lead Stat 06/11/20 10:35 Complete Blood Count AUTO DIFF Stat Comprehensive Metabolic Panel Stat Magnesium Stat Partial Thromboplastin Time Stat Prothrombin Time INR Stat Thyroid Stimulating Hormone Stat Troponin & CK Cardiac Panel Stat 06/11/20 10:40 XR chest 1V Stat 06/11/20 11:05 NT-proBNP (BNP-Adult 18+) Stat Sodium Chloride (Normal Saline 0.9%) 1,000 mls @ 150 mls/hr IV CONT FIONA Last Infusion: 06/11/20 14:20 Dose: 150 mls/hr Documented by: Admin: 06/11/20 11:04 Dose: 150 mls/hr Documented by: DYLAN DILTIAZEM (Diltiazem 125 Mg/125 [id number]) 125 mg in 125 mls @ 5 mls/hr IV TITRATE FIONA; Protocol Last Titration: 06/11/20 14:21 Dose: 7.5 mg/hr, 7.5 mls/hr Documented by: Titration: 06/11/20 13:30 Dose: 7.5 mg/hr, 7.5 mls/hr Documented by: Titration: 06/11/20 12:16 Dose: 10 mg/hr, 10 mls/hr Documented by: Titration: 06/11/20 11:49 Dose: 7.5 mg/hr, 7.5 mls/hr Documented by: Admin: 06/11/20 11:37 Dose: 5 mg/hr, 5 mls/hr Documented by: DYLAN Discontinued Medications Diltiazem HCl (Cardizem) 10 mg IV NOW ONE Stop: 06/11/20 10:41 Last Admin: 06/11/20 11:04 Dose: 10 mg Documented by: DYLAN Metoprolol Tartrate (Lopressor) 25 mg PO NOW ONE Stop: 06/11/20 12:12 Last Admin: 06/11/20 12:28 Dose: 25 mg Documented by: DYLAN Metoprolol Tartrate (Lopressor) 5 mg IV NOW ONE Stop: 06/11/20 12:47 Last Admin: 06/11/20 12:55 Dose: 5 mg Documented by: DYLAN Vital Signs Vital signs: Vital Signs - 8 hr 06/11/20 10:32 06/11/20 11:00 06/11/20 11:04 Temperature 97.6 F Pulse Rate 159 H 157 H 162 H Respiratory Rate 38 H 30 H Blood Pressure 138/80 117/80 117/80 Pulse Oximetry 96 98 06/11/20 11:07 06/11/20 11:30 06/11/20 11:31 Temperature Pulse Rate 155 H 143 H 143 H Respiratory Rate 28 H 27 H Blood Pressure 121/72 114/80 Pulse Oximetry 98 98 98 06/11/20 11:50 Temperature Pulse Rate 134 H Respiratory Rate 24 Blood Pressure 108/80 Pulse Oximetry 98 MDM - Arrhythmia/Palpitations Lab Data Attestation: I reviewed the patient's lab results. Result diagrams: 06/11/20 10:35 06/11/20 10:35 Labs: Lab Results 06/11/20 06/11/20 06/11/20 Range/Units 10:35 10:35 10:35 WBC 10.0 (4.5-11.0) X10^3/uL RBC 4.14 (4.0-5.2) X10^6/uL Hgb 13.4 (12.0-16.0) g/dL Hct 40.0 (36-46) % MCV 96.6 (80-100) fL MCH 32.4 (26-34) PG MCHC 33.5 (30-36) % RDW 14.1 (11.6-14.8) % Plt Count 211 (150-400) X10^3/uL Neut % (Auto) 77.9 H (50-75) % Lymph % (Auto) 13.9 L (25-40) % [place] % (Auto) 6.6 (3-14) % Eos % (Auto) 1.0 L (2-4) % Baso % (Auto) 0.6 (0-2) % Neut # (Auto) 7800 H (1863-5672) /uL Lymph # (Auto) 1400 (3767-4086) /uL [place] # (Auto) 700 (0-900) /uL Eos # (Auto) 100 (0-450) /uL Baso # (Auto) 100 (0-100) /uL PT 11.7 (10.1-12.7) SECONDS INR 1.0 (0.9-1.3) APTT 26 L (26.4-36.2) SECONDS Sodium 135 L (137-145) mmol/L Potassium 4.8 (3.4-5.1) mmol/L Chloride 100 (98-107) mmol/L Carbon Dioxide 31 (22-32) mmol/L BUN 27 H (7-17) mg/dL Creatinine 1.00 (0.52-1.04) mg/dL Estimated GFR 53.2 L (>60) mL/min BUN/Creatinine Ratio 27.0 H (6-22) Glucose 103 (80-110) mg/dL Calcium 9.4 (8.4-10.2) mg/dL Magnesium 2.1 (1.6-2.3) mg/dL Total Bilirubin 0.4 (0.2-1.3) mg/dL AST 29 (14-36) IU/L ALT 31 (<35) IU/L Alkaline Phosphatase 26 L (38-126) U/L Total Creatine Kinase 36 (30-135) U/L CK-MB (CK-2) TNP CK-MB (CK-2) Rel Index TNP Troponin I < 0.012 (0.01-0.034) ng/mL NT-Pro-B Natriuret Pep (<450) pg/mL Total Protein 6.4 (6.3-8.2) g/dL Albumin 3.8 (3.5-5.0) g/dL Globulin 2.6 (1.7-4.1) g/dL Albumin/Globulin Ratio 1.5 (1.0-2.8) TSH (0.47-4.68) uIU/mL 06/11/20 06/11/20 Range/Units 10:35 11:05 WBC (4.5-11.0) X10^3/uL RBC (4.0-5.2) X10^6/uL Hgb (12.0-16.0) g/dL Hct (36-46) % MCV (80-100) fL MCH (26-34) PG MCHC (30-36) % RDW (11.6-14.8) % Plt Count (150-400) X10^3/uL Neut % (Auto) (50-75) % Lymph % (Auto) (25-40) % [place] % (Auto) (3-14) % Eos % (Auto) (2-4) % Baso % (Auto) (0-2) % Neut # (Auto) (1389-0246) /uL Lymph # (Auto) (0010-4213) /uL [place] # (Auto) (0-900) /uL Eos # (Auto) (0-450) /uL Baso # (Auto) (0-100) /uL PT (10.1-12.7) SECONDS INR (0.9-1.3) APTT (26.4-36.2) SECONDS Sodium (137-145) mmol/L Potassium (3.4-5.1) mmol/L Chloride (98-107) mmol/L Carbon Dioxide (22-32) mmol/L BUN (7-17) mg/dL Creatinine (0.52-1.04) mg/dL Estimated GFR (>60) mL/min BUN/Creatinine Ratio (6-22) Glucose (80-110) mg/dL Calcium (8.4-10.2) mg/dL Magnesium (1.6-2.3) mg/dL Total Bilirubin (0.2-1.3) mg/dL AST (14-36) IU/L ALT (<35) IU/L Alkaline Phosphatase (38-126) U/L Total Creatine Kinase (30-135) U/L CK-MB (CK-2) CK-MB (CK-2) Rel Index Troponin I (0.01-0.034) ng/mL NT-Pro-B Natriuret Pep 3590 H (<450) pg/mL Total Protein (6.3-8.2) g/dL Albumin (3.5-5.0) g/dL Globulin (1.7-4.1) g/dL Albumin/Globulin Ratio (1.0-2.8) TSH 0.697 (0.47-4.68) uIU/mL Imaging Data Chest x-ray: Radiologist's Impresson: PROCEDURE: XR CHEST 1V INDICATIONS: chest pain TECHNIQUE: One view of the chest was acquired. COMPARISON: [facility], , CHEST 1 VIEW, 12/14/2017, 10:29. FINDINGS: Surgical changes and devices: None. Lungs and pleura: Lungs are clear. No pleural effusions or pneumothorax. Mediastinum: Mediastinal contours appear normal. Heart size is normal. Bones and chest wall: No suspicious bony lesions. Overlying soft tissues appear unremarkable. IMPRESSION: Normal for age, source of current chest pain symptoms is not seen. Dictated by: Lester Liang M.D. on 06/11/2020 at 11:26 ECG Data Attestation: I personally reviewed and interpreted this ECG as follows: Prior ECG tracings: available for review Interpretation: Atrial fibrillation rate [address] changes MDM Narrative Medical decision making narrative: The patient overall was given small dose of does times them it helped a little diltiazem drip was started however heart rate remained 130-140. She was given or oral dose of metoprolol and 1 dose of Lopressor which seemed to slow her heart rate down even more. She is completely asymptomatic and not a candidate for cardioversion she is also not anticoagulated or even on aspirin. BNP is slightly elevated, not hypoxic or having any difficulty in breathing. Dr. Gaitan accepts for observation Discharge Plan Departure Patient Disposition: Admitted as Observation Clinical Impression: Atrial fibrillation with rapid ventricular response Discharge Date/Time: 06/11/20 14:21 Referrals: Jay Nicolas MD [Primary Care Provider] - Admit Date/Time: 06/11/20 11:56 Admit Provider: Jay Gaitan
[2020-06-11 10:52] LABS: Add Manual Diff / Slide Review NO; Basophils Absolute Auto 100 /uL (0-100); Basophils Percent Auto 0.6 % (0-2); Eosinophils Absolute Auto 100 /uL (0-450); Hemoglobin 13.4 g/dL (12.0-16.0); Lymphocytes Absolute Auto 1400 /uL (1100-4500); Lymphocytes Percent Auto 13.9 % (25-40); Mean Corpuscular HGB Conc 33.5 % (30-36); Mean Corpuscular Hemoglobin 32.4 PG (26-34); Mean Corpuscular Volume 96.6 fL (80-100); Monocytes Absolute Auto 700 /uL (0-900); Monocytes Percent Auto 6.6 % (3-14); Neutrophils Absolute Auto 7800 /uL (1500-7000); Neutrophils Percent Auto 77.9 % (50-75); Platelet Count 211 X10^3/uL (150-400); Red Blood Cell Count 4.14 X10^6/uL (4.0-5.2); Red Cell Distribution Width 14.1 % (11.6-14.8)
[2020-06-11 10:53] LABS: Prothrombin Time 11.7 SECONDS (10.1-12.7)
[2020-06-11 10:55] LABS: PTT Partial Thromboplastin Tim 26 SECONDS (26.4-36.2)
[2020-06-11 10:57] LABS: Alanine Aminotransferase 31 IU/L (<35); Albumin 3.8 g/dL (3.5-5.0); Albumin Globulin Ratio 1.5 (1.0-2.8); Alkaline Phosphatase 26 U/L (38-126); Aspartate Aminotransferase 29 IU/L (14-36); Bilirubin Total 0.4 mg/dL (0.2-1.3); Blood Urea Nitrogen 27 mg/dL (7-17); Calcium 9.4 mg/dL (8.4-10.2); Carbon Dioxide 31 mmol/L (22-32); Chloride 100 mmol/L (98-107); Creatine Kinase 36 U/L (30-135); Estimated Glomerular Filt Rate 53.2 mL/min (>60); Globulin 2.6 g/dL (1.7-4.1); Glucose 103 mg/dL (80-110); HEMOLYSIS < 15 (0-50); Magnesium 2.1 mg/dL (1.6-2.3); Potassium 4.8 mmol/L (3.4-5.1); Sodium 135 mmol/L (137-145); Total Protein 6.4 g/dL (6.3-8.2)
[2020-06-11] MEDS: SODIUM CHLORIDE 0.9% 1,000 ML 150 ML IV (11:04)
[2020-06-11] MEDS: dilTIAZem 5 MG/ML SDV 10 MG IV (11:04)
[2020-06-11 11:08] LABS: Troponin I < 0.012 ng/mL (0.01-0.034)
[2020-06-11 11:23] LABS: NT-proBNP (BNP-Adult 18+) 3590 pg/mL (<450)
[2020-06-11 11:28] LABS: Thyroid Stimulating Hormone 0.697 uIU/mL (0.47-4.68)
[2020-06-11] MEDS: DILTIAZEM 125 MG/125 ML PIGGYBACK IV (11:37)
[2020-06-11] MEDS: METOPROLOL IR 25 MG TABLET PO (12:28)
[2020-06-11] MEDS: METOPROLOL TARTRATE 5 MG/5 ML INJ IV (12:55)
--- NOTE | 2020-06-11 15:20 | PC.ADMIT ---
[email or web address] [facility] Admission Note: The patient,Ariana Ramos,79 y/o, was given written information regarding hospital policies, unit procedures and contact persons. Patient's smoking status: Former smoker. Vital Signs - 8 hr 06/11/20 10:32 06/11/20 11:00 06/11/20 11:04 Temperature 97.6 F Pulse Rate 159 H 157 H 162 H Respiratory Rate 38 H 30 H Blood Pressure 138/80 117/80 117/80 Pulse Oximetry 96 98 06/11/20 11:07 06/11/20 11:30 06/11/20 11:31 Temperature Pulse Rate 155 H 143 H 143 H Respiratory Rate 28 H 27 H Blood Pressure 121/72 114/80 Pulse Oximetry 98 98 98 06/11/20 11:50 06/11/20 12:00 06/11/20 12:10 Temperature Pulse Rate 134 H 144 H 142 H Respiratory Rate 24 22 20 Blood Pressure 108/80 141/59 H 128/72 Pulse Oximetry 98 98 99 06/11/20 12:20 06/11/20 12:30 06/11/20 12:31 Temperature Pulse Rate 144 H 141 H 146 H Respiratory Rate 34 H 29 H 29 H Blood Pressure 123/77 125/77 Pulse Oximetry 98 98 98 06/11/20 12:40 06/11/20 12:51 06/11/20 13:00 Temperature Pulse Rate 136 H 134 H 125 H Respiratory Rate 30 H 28 H 25 H Blood Pressure 108/67 119/75 99/68 Pulse Oximetry 99 99 98 06/11/20 13:11 06/11/20 13:21 06/11/20 13:30 Temperature Pulse Rate 91 H 116 H 93 H Respiratory Rate 15 17 Blood Pressure 103/69 90/55 L 92/60 Pulse Oximetry 99 99 98 06/11/20 13:40 06/11/20 14:00 06/11/20 14:01 Temperature Pulse Rate 90 94 H 113 H Respiratory Rate 29 H 22 30 H Blood Pressure 84/66 L 91/66 Pulse Oximetry 98 98 98 06/11/20 14:10 Temperature Pulse Rate 114 H Respiratory Rate Blood Pressure 101/66 Pulse Oximetry 98 Rec'd pt from ED to rm 231 at 1434 via stretcher with dilt gtt infusing. Pt is AO x3 and denying any symptoms such as chest pain/pressure, palpitations, shortness of breath, dizziness/lightheadedness. Dilt gtt infusing at 7.5 mg/hr. Afib RVR rates up to 120s on bedside monitor. Completed admission assessment with pt/daughter (Soha). Oriented pt and daughter to room/routine, fall risk, use of call light. Instructed pt to wait for assistance before getting OOB. She verbalizes understanding.
--- NOTE | 2020-06-11 15:29 | PM.HP.1 ---
History of Present Illness History of Present Illness Date Patient Seen: 06/11/20 Time Patient Seen: 15:29 Chief complaint: Afib Narrative: Ariana Ramos is an 79-year-old female with a past medical history of hypertension, paroxysmal atrial fibrillation, chronic back pain and spinal stenosis who presented to the emergency room at the direction of her pain specialist for an elevated heart rate. Patient has felt more fatigued for the approximately the past week and has had some episodes of palpitations with diaphoresis, but no overt chest pain or pressure, dizziness, nausea, vomiting, left arm pain, dyspnea on exertion, orthopnea, or lower extremity edema. She denies any symptoms currently. In the emergency room, patient was tachycardic with a rate of 150 with mildly low blood pressures after initial medications. She was mildly tachypneic, but saturating well on room air. EKG showed atrial fibrillation with rapid ventricular response with a rate of [address] or T-wave abnormalities indicative of ischemia. Laboratory evaluation revealed a unremarkable CBC, normal coagulation studies, chemistries are notable for a sodium of 135, creatinine of 1.0, and otherwise unremarkable CMP. Troponin was negative and repeat is currently pending. ProBNP was elevated at 3590. TSH was unremarkable at 0.697. Patient received a pre-procedural COVID-19 test on June 08 which was negative. Chest x-ray was negative for acute pathologies. Patient was given IV diltiazem, oral metoprolol, and started on a diltiazem infusion. She is admitted to the ICU under observation status for atrial fibrillation with rapid ventricular response. Patient History Medical History (Updated 06/11/20 @ 15:37 by Jay Gaitan DO) Atrial fibrillation (Chronic) HTN (hypertension) (Acute) Spinal stenosis (Acute) Surgical History H/O: hysterectomy (Chronic) Hx of appendectomy (Chronic) Family & Social History Family History Unknown No pertinent family history Social History: Prior Living Arrangements House Safety & Behavioral: Feels Safe in Current Yes Environment Been Physically Hurt or No Threatened By a Person Suicidal Ideation Description None Suicide Plan Description No Plan Tobacco & Substance use: Smoking Status Former smoker alcohol intake current alcohol intake frequency 0-2 drinks per day Substance Use Type does not use Meds Home Medications and Allergies Home Medications Medication Instructions Recorded Confirmed Type [KRILL OIL] 3 cap PO QDAY #0 12/14/17 04/15/20 History [TURMERIC] 1 cap PO QDAY #0 12/14/17 04/15/20 History benazepril 40 mg PO QDAY #0 12/14/17 06/11/20 History cetirizine 10 mg PO QDAY #0 12/14/17 06/11/20 History clobetasol 1 pako TOPICAL QDAY #0 12/14/17 04/15/20 History coenzyme Q10 [Co Q-10] 3 cap PO QDAY #0 12/14/17 04/15/20 History diltiazem HCl 1 cap PO Q DAY PRN PRN #0 12/14/17 06/11/20 History docusate sodium 100 - 200 mg PO QDAYP PRN #0 12/14/17 04/15/20 History estradiol 0.5 mg PO QDAY #0 12/14/17 04/15/20 History magnesium oxide 250 mg PO QDAY #0 12/14/17 04/15/20 History multivitamin [Multiple Vitamins] 1 tab PO QDAY #0 12/14/17 04/15/20 History vitamin B complex [B 1 tab PO QDAY #0 12/14/17 04/15/20 History Complex-Vitamin B12] diazepam 10 mg tablet 5 mg PO TID #30 tab 11/01/18 06/11/20 Rx celecoxib 200 mg capsule 200 mg PO QDAY #90 cap 11/06/19 06/11/20 Rx methylprednisolone 4 mg tablets in See Rx Instructions PO PER PKG DIR 01/29/20 04/15/20 Rx a dose pack #21 each gabapentin 300 mg capsule 300 mg PO .COMPLEX #540 cap 04/09/20 04/15/20 Rx cyclobenzaprine 10 mg tablet 10 mg PO TID #90 tab 05/28/20 Rx cyclobenzaprine 10 mg tablet 10 mg PO TID #90 tab 05/28/20 Rx Allergies Allergy/AdvReac Type Severity Reaction Status Date / Time codeine [CODEINE] Allergy Unknown CHEST Verified 06/11/20 09:17 PRESSURE Review of Systems Review of Systems Narrative: All other systems reviewed with the patient and are negative unless otherwise stated. Exam Vital Signs (past 8 hours): - 06/11/20 10:32 06/11/20 11:00 06/11/20 11:04 Temperature 97.6 F Pulse Rate 159 H 157 H 162 H Respiratory Rate 38 H 30 H Blood Pressure 138/80 117/80 117/80 Pulse Oximetry 96 98 06/11/20 11:07 06/11/20 11:30 06/11/20 11:31 Temperature Pulse Rate 155 H 143 H 143 H Respiratory Rate 28 H 27 H Blood Pressure 121/72 114/80 Pulse Oximetry 98 98 98 06/11/20 11:50 06/11/20 12:00 06/11/20 12:10 Temperature Pulse Rate 134 H 144 H 142 H Respiratory Rate 24 22 20 Blood Pressure 108/80 141/59 H 128/72 Pulse Oximetry 98 98 99 06/11/20 12:20 06/11/20 12:30 06/11/20 12:31 Temperature Pulse Rate 144 H 141 H 146 H Respiratory Rate 34 H 29 H 29 H Blood Pressure 123/77 125/77 Pulse Oximetry 98 98 98 06/11/20 12:40 06/11/20 12:51 06/11/20 13:00 Temperature Pulse Rate 136 H 134 H 125 H Respiratory Rate 30 H 28 H 25 H Blood Pressure 108/67 119/75 99/68 Pulse Oximetry 99 99 98 06/11/20 13:11 06/11/20 13:21 06/11/20 13:30 Temperature Pulse Rate 91 H 116 H 93 H Respiratory Rate 15 17 Blood Pressure 103/69 90/55 L 92/60 Pulse Oximetry 99 99 98 06/11/20 13:40 06/11/20 14:00 06/11/20 14:01 Temperature Pulse Rate 90 94 H 113 H Respiratory Rate 29 H 22 30 H Blood Pressure 84/66 L 91/66 Pulse Oximetry 98 98 98 06/11/20 14:10 Temperature Pulse Rate 114 H Respiratory Rate Blood Pressure 101/66 Pulse Oximetry 98 Oxygen Delivery Method Room Air Narrative Exam Narrative: GENERAL APPEARANCE: Obese: Well developed, well nourished, in no acute distress. Mildly short of breath with prolonged speaking. SKIN: Inspection of the skin reveals no rashes, ulcerations or petechiae. There are scattered bruises, most notably on her hands. HEENT: Normocephalic atraumatic, extraocular muscles are intact, oropharynx is clear and mucous membranes are moist, neck is supple without adenopathy NECK: Supple and symmetric. There was no thyroid enlargement, and no tenderness, or masses were felt. No JVD CHEST: Normal AP diameter and normal contour without any kyphoscoliosis. LUNGS: Minimal Right lower lobe rales, CARDIOVASCULAR: Tachycardic and irregularly irregular without any murmurs rubs or gallops. ABDOMEN: Soft and nontender with normal bowel sounds. No ascites was noted. MUSCULOSKELETAL: There was no tenderness or effusions noted. Muscle strength and tone were normal. EXTREMITIES: No cyanosis, clubbing or edema. NEUROLOGIC: Alert and oriented x 3. Normal affect. Gait was normal. Strength is +5/5 in the Upper Extremities and Lower Extremities Bilaterally. Sensation to touch was normal. Objective Labs Result Diagrams: 06/11/20 10:35 06/11/20 10:35 Labs: Laboratory Results - last 24 hr 06/11/20 06/11/20 06/11/20 10:35 10:35 10:35 WBC 10.0 RBC 4.14 Hgb 13.4 Hct 40.0 MCV 96.6 MCH 32.4 MCHC 33.5 RDW 14.1 Plt Count 211 Neut % (Auto) 77.9 H Lymph % (Auto) 13.9 L [place] % (Auto) 6.6 Eos % (Auto) 1.0 L Baso % (Auto) 0.6 Neut # (Auto) 7800 H Lymph # (Auto) 1400 [place] # (Auto) 700 Eos # (Auto) 100 Baso # (Auto) 100 PT 11.7 INR 1.0 APTT 26 L Sodium 135 L Potassium 4.8 Chloride 100 Carbon Dioxide 31 BUN 27 H Creatinine 1.00 Estimated GFR 53.2 L BUN/Creatinine Ratio 27.0 H Glucose 103 Calcium 9.4 Magnesium 2.1 Total Bilirubin 0.4 AST 29 ALT 31 Alkaline Phosphatase 26 L Total Creatine Kinase 36 CK-MB (CK-2) TNP CK-MB (CK-2) Rel Index TNP Troponin I < 0.012 NT-Pro-B Natriuret Pep Total Protein 6.4 Albumin 3.8 Globulin 2.6 Albumin/Globulin Ratio 1.5 TSH 06/11/20 06/11/20 10:35 11:05 WBC RBC Hgb Hct MCV MCH MCHC RDW Plt Count Neut % (Auto) Lymph % (Auto) [place] % (Auto) Eos % (Auto) Baso % (Auto) Neut # (Auto) Lymph # (Auto) [place] # (Auto) Eos # (Auto) Baso # (Auto) PT INR APTT Sodium Potassium Chloride Carbon Dioxide BUN Creatinine Estimated GFR BUN/Creatinine Ratio Glucose Calcium Magnesium Total Bilirubin AST ALT Alkaline Phosphatase Total Creatine Kinase CK-MB (CK-2) CK-MB (CK-2) Rel Index Troponin I NT-Pro-B Natriuret Pep 3590 H Total Protein Albumin Globulin Albumin/Globulin Ratio TSH 0.697 Assessment & Plan Assessment & Plan narrative: Ariana Ramos is an 79-year-old female with a past medical history of hypertension, paroxysmal atrial fibrillation, chronic back pain and spinal stenosis who presented to the emergency room at the direction of her pain specialist for an elevated heart rate. She is admitted under observation status to the ICU for atrial fibrillation with rapid ventricular response on a diltiazem infusion. 1. Atrial fibrillation with rapid ventricular response, present on admission -patient with known diagnosis of paroxysmal atrial fibrillation with similar admission approximately 2 and half years ago. At that time her echocardiogram showed a normal ejection fraction with an EF of 70% and no wall motion abnormalities. She converted to sinus rhythm fairly quickly with a diltiazem infusion. -will obtain echocardiogram, she has mild LE edema and some dyspnea with prolonged sentences, however low blood pressures currently. Will hold on diuresis for now unless worsening respiratory status. ProBNP 3590 on admission. -continue to try and wean from diltiazem infusion, previously took oral diltiazem intermittently but does not like how this makes her feel. Had a long discussion about the need for at least a daily medicine that will slow her heart rate. -chads Vasc of 4. Had a prolonged discussion and patient will start anticoagulation now. -Risk stratify with A1c, lipid panel. TSH is unremarkable at 0.697. -initial troponin negative, will repeat. -EKG on admission showed atrial fibrillation with rapid ventricular response with a rate of 150, there are no significant ST or T-wave abnormalities to indicate ischemia. Admission chest x-ray was unremarkable. 2. Hypertension, chronic -will hold home medications in favor of rate control agents at this time 3. Chronic low back pain - continue home pain management Code: Full as discussed with patient. She states her surrogate decision maker is her grandson Dispo: Admitted under observation status to the ICU DVT: Will start apixaban Scores CHADS-VASc Congestive heart failure: no Hypertension: yes Age 75 years or older: yes Diabetes mellitus: no Stroke, TIA, or TE: no Vascular disease: no Age 65 to 74 years: no Sex category (female): Female CHADS-VASc Score: 4
[2020-06-11] MEDS: APIXABAN 5 MG TABLET PO (16:53)
[2020-06-11 17:01] LABS: Troponin I < 0.012 ng/mL (0.01-0.034)
--- NOTE | 2020-06-11 18:42 | PC.NURSE ---
Attempted to go over home medications for reconciliation with patient and daughter. After going over them for a few minutes, patient got confused, completely forgot what RN was asking, and began talking about the kids in the room. RN spoke with daughter in private, in which she stated that her mother has been increasingly forgetful over the past few months and if questioned or given a lot of information at once, patient will become overwhelmed and get confused. RN unable to finish med reconciliation but daughter stated she would bring in a list of medications from home. Patient currently able to answer situation, location questions appropriately and able to provide name and birthdate. Dr. Gaitan made aware of situation.
[2020-06-11] MEDS: ACETAMINOPHEN 325 MG TABLET 650 MG PO (19:14)
[2020-06-11] MEDS: METOPROLOL ER 25 MG TABLET PO (20:14)
[2020-06-11] MEDS: ALPRAZolam 0.25 MG TABLET PO (21:50)
[2020-06-11] MEDS: DILTIAZEM 125 MG/125 ML PIGGYBACK 15 MG IV (21:53)
--- NOTE | 2020-06-11 22:03 | PC.NURSE ---
Patient with increased confusion as shift has progressed. Patient currently hostile, and disoriented x3. Dr. Hays was notified and one time dose of Xanax was administered. Patient still pulling at monitoring wires. Patient remains in A fib, with rate ranging from 90's to 120's. Patient remains on RA. Right wrist 22 gauge IV with small amount of blood drainage on dressing upon assessment, but IV still infusing well and has good blood return. IV is not painful to patient. Dressing reinforced with Coban dressing.
[2020-06-12] VITALS (34 sets, daily range): BP systolic 111–155; BP diastolic 63–95; PULSE 87–137; RESP 10–54; TEMP 36.3–36.7; O2SAT 91–97
[2020-06-12] MEDS: ACETAMINOPHEN 325 MG TABLET 650 MG PO ×2 (00:56→12:53)
[2020-06-12 05:12] LABS: Add Manual Diff / Slide Review NO; Basophils Absolute Auto 100 /uL (0-100); Basophils Percent Auto 0.7 % (0-2); Eosinophils Absolute Auto 100 /uL (0-450); Eosinophils Percent Auto 1.6 % (2-4); Hemoglobin 12.2 g/dL (12.0-16.0); Lymphocytes Absolute Auto 1300 /uL (1100-4500); Mean Corpuscular HGB Conc 33.8 % (30-36); Mean Corpuscular Hemoglobin 32.7 PG (26-34); Mean Corpuscular Volume 96.6 fL (80-100); Monocytes Absolute Auto 500 /uL (0-900); Monocytes Percent Auto 6.4 % (3-14); Neutrophils Absolute Auto 5700 /uL (1500-7000); Neutrophils Percent Auto 74.3 % (50-75); Platelet Count 185 X10^3/uL (150-400); Red Blood Cell Count 3.73 X10^6/uL (4.0-5.2); Red Cell Distribution Width 13.9 % (11.6-14.8); White Blood Cell Count 7.7 X10^3/uL (4.5-11.0)
[2020-06-12 05:14] LABS: INR 1.1 (0.9-1.3); Prothrombin Time 12.8 SECONDS (10.1-12.7)
--- NOTE | 2020-06-12 05:22 | PC.NURSE ---
Pt. is alert, awake but confused, restless and impulsive but not agitated and has not sleep through the night. Pt. denies pain, afebrile, B/P stable, remains on Diltiazem gtt at 15 mg/hr. HR varies and most of the time monitor is reading high rate due to lots of artifacts. Pt. needs frequent cueing and reorientation. Pt. keeps of pushing the call light not realizing that she is calling the nurse frequently. Apologetic when prompted, thinks the call light is the phone. Considering she has not slept through the night she is at risk for delirium. Cont. to monitor.
[2020-06-12 05:30] LABS: Hemoglobin A1C% w Est Avg Glu 5.5 % (4.0-6.0)
[2020-06-12 05:40] LABS: Alanine Aminotransferase 39 IU/L (<35); Albumin 3.4 g/dL (3.5-5.0); Albumin Globulin Ratio 1.4 (1.0-2.8); Alkaline Phosphatase 27 U/L (38-126); Aspartate Aminotransferase 42 IU/L (14-36); BUN Creatinine Ratio 31.7 (6-22); Bilirubin Total 0.4 mg/dL (0.2-1.3); Bilirubin Unconjugated 0.3 mg/dL (0.0-1.1); Blood Urea Nitrogen 20 mg/dL (7-17); Calcium 8.6 mg/dL (8.4-10.2); Carbon Dioxide 26 mmol/L (22-32); Chloride 97 mmol/L (98-107); Cholesterol 173 mg/dL (140-199); Estimated Glomerular Filt Rate > 60.0 mL/min (>60); Globulin 2.4 g/dL (1.7-4.1); Glucose 113 mg/dL (80-110); HDL Cholesterol 57 mg/dL (40-60); HEMOLYSIS < 15 (0-50); LDL Cholesterol Calculated 82 mg/dL (<100); Magnesium 1.8 mg/dL (1.6-2.3); Potassium 4.3 mmol/L (3.4-5.1); Sodium 129 mmol/L (137-145); Total Protein 5.8 g/dL (6.3-8.2); Triglycerides 171 mg/dL (35-150)
[2020-06-12] MEDS: DILTIAZEM 125 MG/125 ML PIGGYBACK 15 MG IV (06:47)
[2020-06-12] MEDS: APIXABAN 5 MG TABLET PO ×2 (08:11→19:34)
[2020-06-12] MEDS: METOPROLOL ER 50 MG TABLET PO ×2 (08:11→19:33)
--- NOTE | 2020-06-12 08:59 | P.PN_ITS ---
Subjective Subjective Date Patient Seen: 06/12/20 Time Patient Seen: 08:59 Interval history: Ariana Ramos is an 79-year-old female with a past medical history of hypertension, paroxysmal atrial fibrillation, chronic back pain and spinal stenosis who presented to the emergency room at the direction of her pain specialist for an elevated heart rate. She was admitted for atrial fibrillation with rapid ventricular response. She has been started on metoprolol and dilt iazem infusion. Diltiazem infusion is currently at 15. She is slightly hypertensive this morning at 141/87 and will attempt to diurese some. She remains asymptomatic, denying palpitations, chest pain, shortness of breath, nausea, abdominal pain. She has been intermittently confused per nursing staff reports will check urinalysis today, although after speaking to her a bit more I suspect there may be mild cognitive impairment. Exam Vital Signs (past 8 hours): - 06/12/20 01:00 06/12/20 01:15 06/12/20 01:30 Temperature Pulse Rate 87 103 H 103 H Respiratory Rate 40 H 40 H 24 Blood Pressure 126/82 Pulse Oximetry 94 93 94 06/12/20 01:45 06/12/20 02:00 06/12/20 02:30 Temperature Pulse Rate 103 H 99 H 133 H Respiratory Rate 33 H 39 H 51 H Blood Pressure 125/69 Pulse Oximetry 93 93 94 06/12/20 03:00 06/12/20 03:01 06/12/20 03:30 Temperature Pulse Rate 115 H 111 H 124 H Respiratory Rate 10 L 12 13 Blood Pressure 139/63 Pulse Oximetry 95 94 94 06/12/20 04:00 06/12/20 04:30 06/12/20 05:00 Temperature 97.8 F Pulse Rate 126 H 115 H 121 H Respiratory Rate 33 H 31 H 54 H Blood Pressure 120/88 Pulse Oximetry 96 95 95 06/12/20 05:01 06/12/20 05:30 06/12/20 06:00 Temperature Pulse Rate 137 H 121 H 127 H Respiratory Rate 37 H 40 H 41 H Blood Pressure 155/86 H Pulse Oximetry 95 06/12/20 06:01 06/12/20 07:32 06/12/20 08:00 Temperature 97.8 F Pulse Rate 119 H 114 H 125 H Respiratory Rate 37 H 24 Blood Pressure 111/88 136/95 H Pulse Oximetry 95 96 96 06/12/20 08:11 Temperature Pulse Rate 130 H Respiratory Rate Blood Pressure 141/87 H Pulse Oximetry Oxygen Delivery Method Room Air Oxygen Flow Rate 0 Narrative Exam Narrative: GENERAL APPEARANCE: Obese: Well developed, well nourished, in no acute distress. Mildly short of breath with prolonged speaking. SKIN: Inspection of the skin reveals no rashes, ulcerations or petechiae. There are scattered bruises, most notably on her hands. HEENT: Normocephalic atraumatic, extraocular muscles are intact, oropharynx is clear and mucous membranes are moist, neck is supple without adenopathy NECK: Supple and symmetric. There was no thyroid enlargement, and no tenderness, or masses were felt. No JVD CHEST: Normal AP diameter and normal contour without any kyphoscoliosis. LUNGS: bibasilar rales, otherwise CTA b/l. CARDIOVASCULAR: Tachycardic and irregularly irregular without any murmurs rubs or gallops. ABDOMEN: Soft and nontender with normal bowel sounds. No ascites was noted. MUSCULOSKELETAL: There was no tenderness or effusions noted. Muscle strength and tone were normal. EXTREMITIES: No cyanosis, clubbing or edema. NEUROLOGIC: Alert and oriented x 3. Normal affect. Gait was normal. Strength is +5/5 in the Upper Extremities and Lower Extremities Bilaterally. Sensation to touch was normal. Possible mild cognitive impairment. Objective Labs Result Diagrams: 06/12/20 04:38 06/12/20 04:38 Labs: Laboratory Results - last 24 hr 06/11/20 06/11/20 06/11/20 10:35 10:35 10:35 WBC 10.0 RBC 4.14 Hgb 13.4 Hct 40.0 MCV 96.6 MCH 32.4 MCHC 33.5 RDW 14.1 Plt Count 211 Neut % (Auto) 77.9 H Lymph % (Auto) 13.9 L [place] % (Auto) 6.6 Eos % (Auto) 1.0 L Baso % (Auto) 0.6 Neut # (Auto) 7800 H Lymph # (Auto) 1400 [place] # (Auto) 700 Eos # (Auto) 100 Baso # (Auto) 100 PT 11.7 INR 1.0 APTT 26 L Sodium 135 L Potassium 4.8 Chloride 100 Carbon Dioxide 31 BUN 27 H Creatinine 1.00 Estimated GFR 53.2 L BUN/Creatinine Ratio 27.0 H Glucose 103 Hemoglobin A1c Calcium 9.4 Magnesium 2.1 Total Bilirubin 0.4 Conjugated Bilirubin Unconjugated Bilirubin AST 29 ALT 31 Alkaline Phosphatase 26 L Total Creatine Kinase 36 CK-MB (CK-2) TNP CK-MB (CK-2) Rel Index TNP Troponin I < 0.012 NT-Pro-B Natriuret Pep Total Protein 6.4 Albumin 3.8 Globulin 2.6 Albumin/Globulin Ratio 1.5 Triglycerides Cholesterol LDL Cholesterol, Calc HDL Cholesterol TSH Nasal Screen MRSA (PCR) 06/11/20 06/11/20 06/11/20 10:35 11:05 14:45 WBC RBC Hgb Hct MCV MCH MCHC RDW Plt Count Neut % (Auto) Lymph % (Auto) [place] % (Auto) Eos % (Auto) Baso % (Auto) Neut # (Auto) Lymph # (Auto) [place] # (Auto) Eos # (Auto) Baso # (Auto) PT INR APTT Sodium Potassium Chloride Carbon Dioxide BUN Creatinine Estimated GFR BUN/Creatinine Ratio Glucose Hemoglobin A1c Calcium Magnesium Total Bilirubin Conjugated Bilirubin Unconjugated Bilirubin AST ALT Alkaline Phosphatase Total Creatine Kinase CK-MB (CK-2) CK-MB (CK-2) Rel Index Troponin I NT-Pro-B Natriuret Pep 3590 H Total Protein Albumin Globulin Albumin/Globulin Ratio Triglycerides Cholesterol LDL Cholesterol, Calc HDL Cholesterol TSH 0.697 Nasal Screen MRSA (PCR) Negative for mrsa 06/11/20 06/12/20 06/12/20 16:20 04:38 04:38 WBC 7.7 RBC 3.73 L Hgb 12.2 Hct 36.0 MCV 96.6 MCH 32.7 MCHC 33.8 RDW 13.9 Plt Count 185 Neut % (Auto) 74.3 Lymph % (Auto) 17.0 L [place] % (Auto) 6.4 Eos % (Auto) 1.6 L Baso % (Auto) 0.7 Neut # (Auto) 5700 Lymph # (Auto) 1300 [place] # (Auto) 500 Eos # (Auto) 100 Baso # (Auto) 100 PT 12.8 H INR 1.1 APTT Sodium Potassium Chloride Carbon Dioxide BUN Creatinine Estimated GFR BUN/Creatinine Ratio Glucose Hemoglobin A1c Calcium Magnesium Total Bilirubin Conjugated Bilirubin Unconjugated Bilirubin AST ALT Alkaline Phosphatase Total Creatine Kinase CK-MB (CK-2) CK-MB (CK-2) Rel Index Troponin I < 0.012 NT-Pro-B Natriuret Pep Total Protein Albumin Globulin Albumin/Globulin Ratio Triglycerides Cholesterol LDL Cholesterol, Calc HDL Cholesterol TSH Nasal Screen MRSA (PCR) 06/12/20 06/12/20 04:38 04:38 WBC RBC Hgb Hct MCV MCH MCHC RDW Plt Count Neut % (Auto) Lymph % (Auto) [place] % (Auto) Eos % (Auto) Baso % (Auto) Neut # (Auto) Lymph # (Auto) [place] # (Auto) Eos # (Auto) Baso # (Auto) PT INR APTT Sodium 129 L Potassium 4.3 Chloride 97 L Carbon Dioxide 26 BUN 20 H Creatinine 0.63 Estimated GFR > 60.0 BUN/Creatinine Ratio 31.7 H Glucose 113 H Hemoglobin A1c 5.5 Calcium 8.6 Magnesium 1.8 Total Bilirubin 0.4 Conjugated Bilirubin 0.0 Unconjugated Bilirubin 0.3 AST 42 H ALT 39 H Alkaline Phosphatase 27 L Total Creatine Kinase CK-MB (CK-2) CK-MB (CK-2) Rel Index Troponin I NT-Pro-B Natriuret Pep Total Protein 5.8 L Albumin 3.4 L Globulin 2.4 Albumin/Globulin Ratio 1.4 Triglycerides 171 H Cholesterol 173 LDL Cholesterol, Calc 82 HDL Cholesterol 57 TSH Nasal Screen MRSA (PCR) Assessment & Plan Assessment & Plan narrative: Ariana Ramos is an 79-year-old female with a past medical history of hypertension, paroxysmal atrial fibrillation, chronic back pa in and spinal stenosis who presented to the emergency room at the direction of her pain specialist for an elevated heart rate. She is admitted under observation status to the ICU for atrial fibrillation with rapid ventricular response on a diltiazem infusion. 1. Atrial fibrillation with rapid ventricular response, present on admission -patient with known diagnosis of paroxysmal atrial fibrillation with similar admission approximately 2 and half years ago. At that time her echocardiogram showed a normal ejection fraction with an EF of 70% and no wall motion abnormalities. She converted to sinus rhythm fairly quickly with a diltiazem infusion. -TTE pending, she has mild LE edema and some dyspnea with prolonged sentences, however low blood pressures on admission and diuretics held. More room today for diuresis and will trial 40 mg x1 today. probnp elevated on admission to 3590. -continue to try and wean from diltiazem infusion, previously took oral diltiazem intermittently but she does not like how this makes her feel. Had a long discussion about the need for at least a daily medicine that will slow her heart rate. Currently to 50 mg of metoprolol succinate BID. Pending TTE today will add additional agents for rate control -chads Vasc of 4. Had a prolonged discussion and patient will start anticoagulation now. -Risk stratiification labs: Lipid panel TG 171, TC 173, LDL 82, HDL 57. A1c 5.5%. TSH is unremarkable at 0.697. -troponins negative. -EKG on admission showed atrial fibrillation with rapid ventricular response with a rate of 150, there are no significant ST or T-wave abnormalities to indicate ischemia. Admission chest x-ray was unremarkable. 2. Hypertension, chronic -will hold home medications in favor of rate control agents at this time 3. Chronic low back pain - continue home pain management 4. Cognitive impairment - patient with mild cognitive impairment on exam. Will check a UA. May be sundowning with increasing confusion. Also takes multiple benzodiazepines and may in mild withdrawal. Home valium will be resumed at smaller, less frequent dosing and only as needed. Consider discontinuation if no improvement. - OT evaluation once off of diltiazem infusion. Code: Full as discussed with patient. She states her surrogate decision maker is her grandson Dispo: Admitted under observation status to the ICU. OT once off of diltiazem infusion. DVT: on apixaban
[2020-06-12] MEDS: FUROSEMIDE 40 MG/4 ML VIAL IV (09:18)
[2020-06-12] MEDS: SODIUM CHLORIDE 0.9% FLUSH 10 ML IV (09:19)
--- NOTE | 2020-06-12 10:48 | DI.ECHO.S_ITS ---
Echocardiogram Report + + :Name: JEAN PAUL CENTENO Study Date: 06/12/2020 Height: 62 in : :[facility] Weight: 176 lb : : Gender: Female BSA: 1.8 m2 : :: 1940 Age: 79 yrs BP: 134/94 mmHg: :Reason For Study: Atrial fibrillation : :Ordering Physician: [place] : :Hospitalist Performed By: Samara Cotton : :Referring: ZHANE ADAM : + + Interpretation Summary 1) Normal left ventricular size, wall motion and systolic function (EF 55- 60%). 2) Normal right ventricular size and function. 3) The left atrium is severely dilated. The right atrium is moderately dilated. 4) There is mild to moderate tricuspid regurgitation. 5) Atrial fibrillation with ventricular rates in the 71-120bpm present during the study today. 6) Compared to the Echo done 12/14/2017, no significant change. Procedure: A two-dimensional transthoracic echocardiogram with color flow and Doppler was performed. The study quality was technically adequate. Comparison is made with the echocardiogram of 12/14/2017. The patient was in atrial fibrillation with heart rates between 71-120 bpm during the exam. Left Ventricle: The left ventricle is normal in size. Left ventricular wall thickness is mildly increased. There is no thrombus. There is no ventricular septal defect visualized. The ejection fraction is estimated to be 55-60%. There are no focal wall motion abnormalities. Diastolic function could not be accurately assessed due to atrial fibrillation. Right Ventricle: The right ventricle is normal in size and function. Atria: The left atrium is severely dilated. The right atrium is moderately dilated. There is no Doppler evidence for an interatrial shunt. Mitral Valve: There is mild mitral annular calcification. There is mild mitral regurgitation. Aortic Valve: The aortic valve is trileaflet. The aortic valve opens well. There is trace aortic regurgitation. Tricuspid Valve: The tricuspid valve leaflets are thin and pliable. There is mild to moderate tricuspid regurgitation. The right ventricular systolic pressure is estimated to be at least 31 mmHg based on an estimated right atrial pressure of 8 mm Hg. Pulmonic Valve: The pulmonic valve is not well seen, but is grossly normal. There is a trace or physiologic amount of pulmonic regurgitation. Great Vessels: The aortic root is normal size. The ascending aorta is at the upper limits of normal in size. The IVC is of normal diameter and collapses less than 50% with a sniff. This suggests a right atrial pressure of 8 mm Hg. Pericardium/ Pleura There is no pericardial effusion. There is an anterior echo-free space consistent with a fat pad. MMode/2D Measurements & Calculations LVIDd: 4.6 cm LVOT diam: 2.1 cm LVIDs: 3.3 cm Ao root diam: 3.3 cm FS: 27.6 % Aortic Jxn: 2.7 cm EPSS: 0.91 cm asc Aorta Diam: 3.6 cm IVSd: 1.2 cm LVPWd: 1.2 cm LV lakhani. diameter/BSA (cm/m^2): 2.5 LV sys. diameter/BSA (cm/m^2): 1.8 LA A2 area: 30.4 cm2 RA long axis: 5.2 cm LA A4 area: 27.4 cm2 RA area: 20.6 cm2 LA length (vol): 6.1 cm RA vol: 69.5 ml LA vol: 116.7 ml RA : 38.4 ml/m2 LA vol index: 64.4 ml/m2 IVC diam: 1.8 cm RVD1 (basal): 3.5 cm RVD2 (mid): 2.5 cm TAPSE: 2.8 cm Doppler Measurements & Calculations Ao V2 max: 121.9 cm/sec LVOT Max Fede: 72.7 cm/sec Ao V2 mean: 79.1 cm/sec LV V1 max P.1 mmHg Ao max P.9 mmHg LV V1 VTI: 11.0 cm Ao mean P.8 mmHg EITAN(I,D): 2.0 cm2 Ao V2 VTI: 18.7 cm EITAN(V,D): 2.0 cm2 sev ratio: 0.59 EITAN indexed to BSA (cm^2/m^2): 1.1 Med Peak E' Fede: 7.5 cm/sec TR max fede: 238.9 cm/sec Lat Peak E' Fede: 6.4 cm/sec TR max P.8 mmHg MVA(VTI): 1.9 cm2 PA V2 max: 85.2 cm/sec MR ERO: 0.05 cm2 PA V2 mean: 54.7 cm/sec PA mean P.4 mmHg PA Accel Time: 0.10 sec MV V2 mean: 53.5 cm/sec MR VTI: 164.4 cm MV mean P.7 mmHg MV V2 VTI: 19.4 cm MR PISA: 0.70 cm2 SV(LVOT): 36.9 ml MR flow rate: 25.8 cm3/sec MR PISA radius: 0.33 cm Reading Physician:01:18 PM
--- NOTE | 2020-06-12 11:59 | CM.DANOTE ---
Patient is an 79 year old female who was admitted on 06/11/20 for AFIB. Pt has [employer] and [employer] for insurance and her PCP is Dr. Jay Almanza. EMR was reviewed. Per MD, pt with a hx of AFIB and admitted for observation of AFIB symptoms and Echo ordered and pending. OT also ordered and pending. Per RN, pt with increased confusion and some agitation overnight likely due to lack of sleep and Dtr discussed that pt seems to have increased confusion/memory issues over the past few months. SW met briefly bedside with pt and explained role and pt was able to confirm that she lives in [place] alone with her dog and that she has 2 supportive grandsons who live nearby and provide assist when needed. Pt states she is independent with ADL's at baseline and also has very supportive friend/neighbor who helps care for pt's dog when needed. Family not currently bedside but Dtr plans to be bedside later today. Pt was last admitted in November 2017 for similar and was able to d/c home with family support and no needs. Plan: SW to follow for more thorough bedside assessment when family member present and to follow for OT eval and recommendations towards determining d/c planning needs. Per MD, pending Echo results pt may be stable for d/c tomorrow. JEFF Parker Discharge Planning/Care Management CM Discharge Assessment Start: 06/12/20 11:37 Freq: Status: Active Protocol: Document 06/12/20 11:37 BF (Rec: 06/12/20 11:59 BF [id number]) Discharge Planning Assessment Assigned Analysis Or Research Safety Inspector JEFF Hamlin Advance Directives? Yes Advance Directives on File No History Provided By Patient,Family Member,Medical Record Has Patient been admitted in last 30 No days? Prior Living Arrangements House Type of transporation used prior to Relies on Others admit Comment Has 2 grandsons nearby who assist if needed Independent with ADL's Yes Is patient alert and oriented? Yes: mostly, has some increased confusion Needs Assistance With Managing Medications,Home Chores / Shopping Caregiver for Another No Patient/Family Preference Home with Home Health Comment Pending OT eval and recommendations and Echo results Barriers to Discharge No Discharge Plan Home Transportation Arrangement Dtr bedside and family can provide transport home when stable Additional Comment Pending Echo and OT eval and recommendations Review Status In Process Please Provide Date Initial DC 06/12/20 Assessment Was Performed Next Review Type Continued Stay Review
[2020-06-12] MEDS: diazePAM 2 MG TABLET PO (12:53)
--- NOTE | 2020-06-12 12:56 | OT.IP.EVAL ---
Past Medical History (Last Updated 06/11/20 @ 15:37 by Jay Gaitan DO) Atrial fibrillation (Chronic) HTN (hypertension) (Acute) Spinal stenosis (Acute) Surgical History (Last Reviewed 06/11/20 @ 11:01 by Verona Bermudez DO) H/O: hysterectomy (Chronic) Hx of appendectomy (Chronic) Occupational Therapy Inpatient Evaluation/Re-Eval M1 PT/OT-IP Prior Functional Status Start: 06/12/20 12:42 Freq: NEEDED Status: Active Protocol: Document 06/12/20 12:42 CGR (Rec: 06/12/20 12:56 CGR [email or web address]) Medical Review Prior Functional Status Medical History Reviewed Yes Communication Pt is an effective verbal communicator. Mobility and Gait Pt was IND in all Activities of Daily Living and IADL's Pt was IND in all ADLs Prior Functional Level (Other details) Pt has multiple family members that live near her. Social History Household Members none Living Arrangements House Number of Floors (Floors) Two Floors Number of Stairs To Enter/Railing? 1 step to enter onto the main living floor without railing. Pt rarely goes down stairs. Home Environment Standard Height Toilet,Walk in Shower Home Equipment Hand Held Shower Employment Status Retired Additional Social History Comment Pt is an active flatbed driver. Per daughter, pt often is slightly forgetful but that she has never had concerns about the pt driving safely or living alone. M2 OT-IP Current Condition Start: 06/12/20 12:42 Freq: Status: Active Protocol: Document 06/12/20 12:42 CGR (Rec: 06/12/20 12:56 CGR [email or web address]) Occupational Therapy Current Condition Current Condition Evaluation Date 06/12/20 Treatment Diagnosis Afib with RVR M3 OT- IP Subjective and Pain Start: 06/12/20 12:42 Freq: Status: Active Protocol: Document 06/12/20 12:42 CGR (Rec: 06/12/20 12:56 CGR [email or web address]) OT- Subjective Occupational Therapy Visit Type Type Initial Evaluation Visit Start Time 12:23 Visit Stop Time 12:40 Total Visit Minutes 17 Notes Pts daughter present throughout session. Occupational Therapy Visit Comments Patient Comments I need to get him the gummy bears OT Pain Assessment Pain When Pain Assessed At Rest Pain Present Pain Present Denied Pain M4 OT- IP ADL's Start: 06/12/20 12:42 Freq: Status: Active Protocol: Document 06/12/20 12:42 CGR (Rec: 06/12/20 12:56 CGR [email or web address]) OT [id number] Comments OT Self-Feeding Comments not meal time OT ADL-Grooming Comments OT Grooming Comments pt declined, states she already performed OT ADL-Oral Care Comments Oral Care Comments pt declined, states she already performed OT ADL-Dressing General Eval Lower Body Dressing Ability Independent Areas Needing Assistance Socks Comments OT Dressing Comments pt performed doffing and donning of socks without difficulty seated in chair. OT ADL-Toileting General Evaluation Toileting Ability Independent Comments OT Toileting Comments Pt able to perform without assist. OT ADL-Bathing Comments OT Bathing Comments not performed on this date M5 OT- IP IADL's Start: 06/12/20 12:42 Freq: Status: Active Protocol: Document 06/12/20 12:42 CGR (Rec: 06/12/20 12:56 CGR [email or web address]) OT-Instrumental Activities of Daily Living Deficits IADL Deficits Identified Deficits Home Safety Awareness Awareness of Need for Assistance at Home Decreased Awareness Ability to Problem Solve Emergency Unable to Problem Solve Situations Medication Management Medication Management Comments Per daughter, pt is typically able to perform without difficulty Money Management Money Management Comments Per daughter, pt is typically able to perform without difficulty Meal Preparation Meal Preparation Comments Per daughter, pt is typically able to perform without difficulty Budget Specialist Budget Specialist Comments Per daughter, pt is typically able to perform without difficulty Driving Driving Comments Per daughter, pt is typically able to perform without difficulty M6 OT- IP Functional Cognition Start: 06/12/20 12:42 Freq: Status: Active Protocol: Document 06/12/20 12:42 CGR (Rec: 06/12/20 12:56 CGR [email or web address]) Cognitive Factors Limiting Selfcare Function Cognitive Ability Level of Alertness Alert,Confusional State Patient Orientation Name,Month,Year,Day of Week, Place Attention Span Ability Capable of Focused Attention, Unable to Sustain Attention Ability to Follow Commands Able to Follow One Step Commands with Increased Time, Able to Follow One Step Commands with Repetition Memory Description Short Term Impaired Safety Awareness Underestimates Need for Assistance Cognitive Comments Cognitive Assessment Comments Pt would benefit from formal cog assessment but was impulsive and unable to sustain attention during this session. Per daughter, pt is typically cognitively intact. Will hold on SLUMs for another day. OT- Vision and Hearing OT- Hearing Assessment OT- Hearing Assessment WFL OT- Vision Assessment Vision History Cataracts Visual Acuity Glasses For Reading Visual Attentiveness WFL Occular Pursuits WFL Visual Convergence WFL Vision Assessment Comments Pt had a recent cateract removal sx. M7 OT- IP Mobility and Balance Start: 06/12/20 12:42 Freq: Status: Active Protocol: Document 06/12/20 12:42 CGR (Rec: 06/12/20 12:56 CGR [email or web address]) OT-Transfer Assessment Sit to and From Stand Sit to and from Stand Standby Assistance Transfers Transfer Ability Standby Assistance Technique Transfer Destination Chair,Toilet Transfer Technique Stand Step Pivot Devices Transfer Assistive Devices None Comments Mobility Comments Pt is impulsive but appears to have good balance with all mobility without AD. OT- Balance Assessment Sitting Balance and Reactions Static Sitting Balance Ability Normal Dynamic Sitting Balance Ability Good M8 OT- IP Objective Assessments Start: 06/12/20 12:42 Freq: Status: Active Protocol: Document 06/12/20 12:42 CGR (Rec: 06/12/20 12:56 CGR [email or web address]) OT Gross Range of Motion Upper Extremity Range of Motion Assessment Within Functional Limits OT Strength Upper Extremity Strength Assessment Within Functional Limits Comments Strength Comments grossly 4/5 OT- Coordination Assessment Upper Extremity Finger to Nose Test Within Functional Limits Finger Tapping Test Within Functional Limits OT-Muscle Tone Assessment Muscle Tone WNL Yes OT Sensation Assessment Edema Edema Absent M9 OT- IP Assessment and Plan Start: 06/12/20 12:42 Freq: Status: Active Protocol: Document 06/12/20 12:42 CGR (Rec: 06/12/20 12:56 CGR [email or web address]) OT Summary Assessment and Plan Potential Rehabilitation Potential Good Analytic Complexity at Evaluation Low Summary OT Impairments Functional Cognition Progress Towards Goals Slow Progress due to Cognition Assessment Summary Pt presents with poor cognition that is impacting her ability to safely care for herself. Pt would benefit from formal cog assessment once able to focus to particiapte. Nursing is attempting to get urine samle for suspected UTI. Pt will benefit from continue OT services. Goals OT-Other Goals Pt will perform formal cog assessment. Pt will perform all ADLs with IND and good safety. Frequency of Treatment Frequency Of Treatment Once a Day Treatment Plan OT Treatment Plan ADL Training,Functional Cognition Training Other Treatment Recommendations and Next SLUMS Treatment Focus Discharge Recommendations OT Discharge Recommendations Home with 24/7 Assist Transportation Needs at Discharge Private Vehicle
--- NOTE | 2020-06-12 13:25 | PC.NURSE ---
Dilt gtt off at 1130. Resting HR 88-110, Afib. Pt ambulated around the nurses station with CGA/gait belt with HR spikes up to 130s, non sustained Afib. Pt is confused and frequently attempting to get OOB without assistance despite continual education re use of call light, need to wait for assist prior to getting OOB. She is somewhat redirectable and at times able to reorient but does become irritable and agitated with persistent/repetitive instruction. She is impulsive and emotionally labile at times occasionally tensing up and becoming tearful without any apparent stressor. Discussed HR and continued confusion/impulsivity with Dr. Gaitan at 1315. States awaiting echo results giving add'l orders.
[2020-06-12 14:11] LABS: Sodium Urine Random 97 mmol/L (30-90)
[2020-06-12] MEDS: dilTIAZem SR 60 MG PO ×2 (14:14→19:33)
[2020-06-12 15:32] LABS: Bacteria Urine None Seen; WBC Urine None Seen (0-5/HPF)
[2020-06-12 15:37] LABS: Appearance Urine UA CLEAR; Bilirubin Urine UA NEGATIVE (NEGATIVE); Color Urine UA YELLOW; Glucose Urine UA NEGATIVE (Negative); Ketones Urine UA NEGATIVE (NEGATIVE); Leukocyte Esterase Urine UA NEGATIVE (NEGATIVE); Nitrite Urine UA NEGATIVE (Negative); Occult Blood Urine UA TRACE-INTACT (Negative); Protein Urine UA NEGATIVE (Negative); Urobilinogen Urine UA 0.2 E.U./dL (0.2)
[2020-06-12 15:47] LABS: Culture Indicated Urine Cult Not Indicated; RBC Urine 0-1/HPF (0-5/HPF)
[2020-06-12] MEDS: GABAPENTIN 300 MG CAPSULE PO (19:34)
[2020-06-12] MEDS: MELATONIN 3 MG TABLET 9 MG PO (19:57)
--- NOTE | 2020-06-12 21:59 | PC.NURSE ---
Shift note: Pt restless and impulsive mosst of shift. Required frequent redirection and reorientation. Oriented to self only. HR Afib 108-120. After receiving melatonin she settled down and appears to be sleeping. Resp deep and even. Bed in low and locked position, call light within reach.
[2020-06-13] VITALS (18 sets, daily range): BP systolic 113–154; BP diastolic 58–109; PULSE 72–128; RESP 16–19; TEMP 36.8–37.4; O2SAT 93–99
[2020-06-13] MEDS: METOPROLOL ER 25 MG TABLET PO (00:14)
[2020-06-13] MEDS: DILTIAZEM 125 MG/125 ML PIGGYBACK IV (03:29)
[2020-06-13 05:06] LABS: Add Manual Diff / Slide Review NO; Basophils Absolute Auto 0 /uL (0-100); Basophils Percent Auto 0.4 % (0-2); Eosinophils Absolute Auto 200 /uL (0-450); Eosinophils Percent Auto 2.6 % (2-4); Hematocrit 37.3 % (36-46); Hemoglobin 12.5 g/dL (12.0-16.0); Lymphocytes Absolute Auto 1200 /uL (1100-4500); Lymphocytes Percent Auto 15.2 % (25-40); Mean Corpuscular HGB Conc 33.5 % (30-36); Mean Corpuscular Volume 95.4 fL (80-100); Monocytes Absolute Auto 700 /uL (0-900); Neutrophils Absolute Auto 5800 /uL (1500-7000); Neutrophils Percent Auto 72.8 % (50-75); Platelet Count 196 X10^3/uL (150-400); Red Blood Cell Count 3.91 X10^6/uL (4.0-5.2)
[2020-06-13 05:08] LABS: INR 1.3 (0.9-1.3); Prothrombin Time 14.8 SECONDS (10.1-12.7)
[2020-06-13 05:13] LABS: Alanine Aminotransferase 34 IU/L (<35); Albumin 3.2 g/dL (3.5-5.0); Albumin Globulin Ratio 1.3 (1.0-2.8); Alkaline Phosphatase 25 U/L (38-126); Aspartate Aminotransferase 28 IU/L (14-36); BUN Creatinine Ratio 27.3 (6-22); Bilirubin Total 0.5 mg/dL (0.2-1.3); Bilirubin Unconjugated 0.5 mg/dL (0.0-1.1); Blood Urea Nitrogen 15 mg/dL (7-17); Calcium 8.1 mg/dL (8.4-10.2); Carbon Dioxide 28 mmol/L (22-32); Chloride 93 mmol/L (98-107); Estimated Glomerular Filt Rate > 60.0 mL/min (>60); Globulin 2.5 g/dL (1.7-4.1); Glucose 96 mg/dL (80-110); HEMOLYSIS < 15 (0-50); Magnesium 1.7 mg/dL (1.6-2.3); Potassium 3.7 mmol/L (3.4-5.1); Sodium 125 mmol/L (137-145); Total Protein 5.7 g/dL (6.3-8.2)
[2020-06-13] MEDS: POTASSIUM CHLORIDE 20 MEQ TAB 40 MEQ PO (06:32)
[2020-06-13] MEDS: MAGNESIUM SULFATE 2 GM/50 ML PIGGYBACK IV (06:33)
--- NOTE | 2020-06-13 07:18 | PC.NURSE ---
Patient rested majority of the shift after receiving a dose of melatonin on evenings. Patient disoriented at the beginning of the shift and throughout the shift, however this morning patient woke up more lucid. Patient has been up to the restroom, stable on her feet. Cardizem drip started this morning, heart rate with better control after RN titrated drip up to 10 mg/hr.
[2020-06-13] MEDS: METOPROLOL ER 50 MG TABLET PO (08:09)
[2020-06-13] MEDS: APIXABAN 5 MG TABLET PO (08:10)
[2020-06-13] MEDS: SODIUM CHLORIDE 0.9% FLUSH 10 ML IV (08:10)
[2020-06-13] MEDS: dilTIAZem SR 60 MG PO (08:10)
[2020-06-13] MEDS: GABAPENTIN 300 MG CAPSULE PO (08:10)
--- NOTE | 2020-06-13 09:45 | OT.IP.TRT ---
Occupational Therapy Treatment Note M2 OT-IP Current Condition Start: 06/12/20 12:42 Freq: Status: Active Protocol: Document 06/12/20 12:42 CGR (Rec: 06/12/20 12:56 CGR [email or web address]) Occupational Therapy Current Condition Current Condition Evaluation Date 06/12/20 Treatment Diagnosis Afib with RVR M3 OT- IP Subjective and Pain Start: 06/12/20 12:42 Freq: Status: Active Protocol: Document 06/13/20 09:51 [facility] (Rec: 06/13/20 10:01 [facility] [id number]) OT- Subjective Occupational Therapy Visit Type Type Treatment Note Visit Start Time 09:13 Visit Stop Time 09:45 Total Visit Minutes 12 Occupational Therapy Visit Comments Patient Comments Pt seen for split treatment from [id number] and [id number], as pt's grandson present to answer questions at the end of OT session. Patient/Caregiver Goals To go home. OT Pain Assessment Pain When Pain Assessed At Rest Pain Present Pain Present Denied Pain M4 OT- IP ADL's Start: 06/12/20 12:42 Freq: Status: Active Protocol: Document 06/12/20 12:42 CGR (Rec: 06/12/20 12:56 CGR [email or web address]) OT [id number] Comments OT Self-Feeding Comments not meal time OT ADL-Grooming Comments OT Grooming Comments pt declined, states she already performed OT ADL-Oral Care Comments Oral Care Comments pt declined, states she already performed OT ADL-Dressing General Eval Lower Body Dressing Ability Independent Areas Needing Assistance Socks Comments OT Dressing Comments pt performed doffing and donning of socks without difficulty seated in chair. OT ADL-Toileting General Evaluation Toileting Ability Independent Comments OT Toileting Comments Pt able to perform without assist. OT ADL-Bathing Comments OT Bathing Comments not performed on this date M5 OT- IP IADL's Start: 06/12/20 12:42 Freq: Status: Active Protocol: Document 06/12/20 12:42 CGR (Rec: 06/12/20 12:56 CGR [email or web address]) OT-Instrumental Activities of Daily Living Deficits IADL Deficits Identified Deficits Home Safety Awareness Awareness of Need for Assistance at Home Decreased Awareness Ability to Problem Solve Emergency Unable to Problem Solve Situations Medication Management Medication Management Comments Per daughter, pt is typically able to perform without difficulty Money Management Money Management Comments Per daughter, pt is typically able to perform without difficulty Meal Preparation Meal Preparation Comments Per daughter, pt is typically able to perform without difficulty Operations Asst Operations Asst Comments Per daughter, pt is typically able to perform without difficulty Driving Driving Comments Per daughter, pt is typically able to perform without difficulty M6 OT- IP Functional Cognition Start: 06/12/20 12:42 Freq: Status: Active Protocol: Document 06/13/20 09:51 [facility] (Rec: 06/13/20 10:01 [facility] [id number]) Cognitive Factors Limiting Selfcare Function Cognitive Ability Level of Alertness Alert Patient Orientation Name,Age,Birthday,Month,Date, Year,Day of Week,Place, Situation Attention Span Ability Capable of Focused Attention, Capable of Sustained Attention Ability to Follow Commands Able to Follow Multi-Step Commands Memory Description Short Term Impaired Cognitive Tests SLUMS Pt scored 26/30 , which is is normal limits for her education. Pt main difficulty with short term memory only able to recall 3/5 objects after times passed and answered 3/4 questions right after a paragraph read. Cognitive Comments Cognitive Assessment Comments Pt thinking more clearly today . M8 OT- IP Objective Assessments Start: 06/12/20 12:42 Freq: Status: Active Protocol: Document 06/12/20 12:42 CGR (Rec: 06/12/20 12:56 CGR [email or web address]) OT Gross Range of Motion Upper Extremity Range of Motion Assessment Within Functional Limits OT Strength Upper Extremity Strength Assessment Within Functional Limits Comments Strength Comments grossly 4/5 OT- Coordination Assessment Upper Extremity Finger to Nose Test Within Functional Limits Finger Tapping Test Within Functional Limits OT-Muscle Tone Assessment Muscle Tone WNL Yes OT Sensation Assessment Edema Edema Absent M9 OT- IP Assessment and Plan Start: 06/12/20 12:42 Freq: Status: Active Protocol: Document 06/13/20 09:51 [facility] (Rec: 06/13/20 10:01 [facility] [id number]) OT Summary Assessment and Plan Potential Rehabilitation Potential Good Analytic Complexity at Evaluation Low Summary Progress Towards Goals Progressing Toward Goals Assessment Summary Pt mentation has cleared and not wanting to shower at this time and grandson states to be staying with pt for the next two weeks. Pt's grandson aware to proved assist as needed. Pt to go home when medically stable. Discharge Recommendations OT Discharge Recommendations Home with Assistance Transportation Needs at Discharge Private Vehicle
--- NOTE | 2020-06-13 10:43 | PC.NURSE ---
Addendum entered by Leslie Louise R.N. 06/13/20 13:28: pt discharged to home with david danielle- reviewed at length the new rx she would be on and answered all questions to their satisfaction- dc from hospital at this time Original Note: PT REMAINS A BIT IMPULSIVE BUT REASONABLE- SHE REMAINS IN ATRIAL FIBRILLATION BUT RATE CONTROLLED IN THE MID 70'S - MID 80'S ALERT AND CONVERSANT. DAVID DANIELLE, HERE FROM [facility] AND QUESTIONING HER DISCHARGE ORDER WITHOUT PERFORMING CT SCAN TO CHECK FOR SMALL STROKES AND THAT SHE WILL DECLINE ANY ANTICOAGULANTS- ALTHOUGH PRESENTLY TAKING ELIQUIS - CASE CATARINO AND MADE AWARE
--- NOTE | 2020-06-13 10:48 | OT.IP.TRT ---
Occupational Therapy Treatment Note M2 OT-IP Current Condition Start: 06/12/20 12:42 Freq: Status: Active Protocol: Document 06/12/20 12:42 CGR (Rec: 06/12/20 12:56 CGR [email or web address]) Occupational Therapy Current Condition Current Condition Evaluation Date 06/12/20 Treatment Diagnosis Afib with RVR M3 OT- IP Subjective and Pain Start: 06/12/20 12:42 Freq: Status: Active Protocol: Document 06/13/20 12:01 [facility] (Rec: 06/13/20 12:17 [facility] [id number]) OT- Subjective Occupational Therapy Visit Type Type Treatment Note Visit Start Time 10:05 Visit Stop Time 10:48 Total Visit Minutes 43 Occupational Therapy Visit Comments Patient Comments Pt's grandson requesting OT do more cognitive testing, as able to encourage pt to participate. Patient/Caregiver Goals To go home. OT Pain Assessment Pain When Pain Assessed At Rest Pain Present Pain Present Denied Pain M4 OT- IP ADL's Start: 06/12/20 12:42 Freq: Status: Active Protocol: Document 06/12/20 12:42 CGR (Rec: 06/12/20 12:56 CGR [email or web address]) OT [id number] Comments OT Self-Feeding Comments not meal time OT ADL-Grooming Comments OT Grooming Comments pt declined, states she already performed OT ADL-Oral Care Comments Oral Care Comments pt declined, states she already performed OT ADL-Dressing General Eval Lower Body Dressing Ability Independent Areas Needing Assistance Socks Comments OT Dressing Comments pt performed doffing and donning of socks without difficulty seated in chair. OT ADL-Toileting General Evaluation Toileting Ability Independent Comments OT Toileting Comments Pt able to perform without assist. OT ADL-Bathing Comments OT Bathing Comments not performed on this date M5 OT- IP IADL's Start: 06/12/20 12:42 Freq: Status: Active Protocol: Document 06/12/20 12:42 CGR (Rec: 06/12/20 12:56 CGR [email or web address]) OT-Instrumental Activities of Daily Living Deficits IADL Deficits Identified Deficits Home Safety Awareness Awareness of Need for Assistance at Home Decreased Awareness Ability to Problem Solve Emergency Unable to Problem Solve Situations Medication Management Medication Management Comments Per daughter, pt is typically able to perform without difficulty Money Management Money Management Comments Per daughter, pt is typically able to perform without difficulty Meal Preparation Meal Preparation Comments Per daughter, pt is typically able to perform without difficulty Turning Lathe Tender Turning Lathe Tender Comments Per daughter, pt is typically able to perform without difficulty Driving Driving Comments Per daughter, pt is typically able to perform without difficulty M6 OT- IP Functional Cognition Start: 06/12/20 12:42 Freq: Status: Active Protocol: Document 06/13/20 12:01 [facility] (Rec: 06/13/20 12:17 [facility] [id number]) Cognitive Factors Limiting Selfcare Function Cognitive Ability Level of Alertness Alert Patient Orientation Name,Age,Birthday,Month,Date, Year,Day of Week,Place, Situation Attention Span Ability Capable of Focused Attention Ability to Follow Commands Able to Follow Multi-Step Commands Memory Description Short Term Impaired Problem Solving Ability Unable to Identify Errors, Needs Assist to Identify Solutions Executive Function Ability Unable to Switch Focus,Unable to Organize Plans,Unable to Remember Details Cognitive Tests ACL Pt scored 4.4 which implies lives with someone who does a daily check on the environment and remove any hazzards and solves any new problems. Therefore to have assist with meals, finances, and medications. Therefore based on this score no driving recommended. Cognitive Comments Cognitive Assessment Comments Pt scored 141 seconds on [place] Making Part B which implies significant impairments for visual attention, task switching, executive function. mental flexibility and speed of processing. Pt grandson aware of her deficits and mentions prior pt has not been cooking for herself and had to have meals brought to her. M7 OT- IP Mobility and Balance Start: 06/12/20 12:42 Freq: Status: Active Protocol: Document 06/12/20 12:42 CGR (Rec: 06/12/20 12:56 CGR [email or web address]) OT-Transfer Assessment Sit to and From Stand Sit to and from Stand Standby Assistance Transfers Transfer Ability Standby Assistance Technique Transfer Destination Chair,Toilet Transfer Technique Stand Step Pivot Devices Transfer Assistive Devices None Comments Mobility Comments Pt is impulsive but appears to have good balance with all mobility without AD. OT- Balance Assessment Sitting Balance and Reactions Static Sitting Balance Ability Normal Dynamic Sitting Balance Ability Good M8 OT- IP Objective Assessments Start: 06/12/20 12:42 Freq: Status: Active Protocol: Document 06/12/20 12:42 CGR (Rec: 06/12/20 12:56 CGR [email or web address]) OT Gross Range of Motion Upper Extremity Range of Motion Assessment Within Functional Limits OT Strength Upper Extremity Strength Assessment Within Functional Limits Comments Strength Comments grossly 4/5 OT- Coordination Assessment Upper Extremity Finger to Nose Test Within Functional Limits Finger Tapping Test Within Functional Limits OT-Muscle Tone Assessment Muscle Tone WNL Yes OT Sensation Assessment Edema Edema Absent M9 OT- IP Assessment and Plan Start: 06/12/20 12:42 Freq: Status: Active Protocol: Document 06/13/20 12:01 [facility] (Rec: 06/13/20 12:17 [facility] [id number]) OT Summary Assessment and Plan Potential Rehabilitation Potential Good Analytic Complexity at Evaluation Low Summary OT Impairments Functional Cognition,Dressing, Toileting,Bathing,Toilet Transfers,Shower Transfers Progress Towards Goals Progressing Toward Goals Assessment Summary Per grandson's request wanting pt to do more cognitive testing which pt agreed after encouragement. Pt's cognitive testing implies that pt at this time to have someone live with her and do daily check of the environment and assist with meds, meals, and finances. Pt's grandson to stay with her and looking into getting more assist at home for pt. Goals Toileting Goal Independent Bathing Goal Independent Toilet Transfer Goal Independent Shower Transfer Goal Independent OT-Other Goals Good safety for all Adl and IADl needs. Days to Meet Goals 1 Frequency of Treatment Frequency Of Treatment Once a Day Treatment Plan Other Treatment Recommendations and Next shower if still here Treatment Focus Discharge Recommendations OT Discharge Recommendations Home with Assistance Transportation Needs at Discharge Private Vehicle
--- NOTE | 2020-06-13 11:09 | DI.CT.S_ITS ---
PROCEDURE: CT HEAD/BRAIN WO CON INDICATIONS: r/o stroke evaluate memory lost TECHNIQUE: Noncontrast 4.5 mm thick angled axial sections acquired from the foramen magnum to the vertex, with coronal and sagittal reformats. For radiation dose reduction, the following was used: automated exposure control, adjustment of mA and/or kV according to patient size. COMPARISON: None. FINDINGS: Image quality: Excellent. CSF spaces: Basal cisterns are patent. No extra-axial fluid collections. The ventricles are symmetric in size and shape. Brain: No intracranial bleeds or masses. There is cerebral volume loss for age, with resultant ventricular and sulcal prominence. There are mild periventricular and deep white matter chronic small vessel ischemic changes. There is intracranial internal carotid artery atherosclerosis. Skull and face: Calvarium and visualized facial bones appear intact, without suspicious lesions. Sinuses: Visualized sinuses and mastoids are clear. IMPRESSION: 1. Age-related volume loss and age-appropriate, mild small vessel ischemic change. 2. No evidence acute stroke, hemorrhage, or mass. Dictated by: Scooter Esparza M.D. on 06/13/2020 at 11:00 Approved by: Scooter Esparza M.D. on 06/13/2020 at 11:02
--- NOTE | 2020-06-13 12:30 | CM.DPNOTE ---
DCP Discharge Home with HH Per MD, pt to have CAT scan today per family request to fully r/o CVA as pt has had increased confusion over the past couple months and then more significantly during admission. Otherwise pt medically stable to d/c home with family assist and HH RN for med management and vitals. Per OT, pt was better able to participate in mokonoUMS today and her score recommended safe for home with occasional checks by neighbors/friends. SW met bedside with pt and her grandson who states he lives in [facility] but came to visit pt and plans to stay for a week with pt to confirm she is safe at home and coordinate her care until he returns home. He states he is not officially blood family but we grew up with patient as basically our grandmother and have always remained close. Dtr does not live in the area but grandson plans to call and coordinate further with pt's Dtr. Pt and grandson had questions regarding in home caregivers and SW provided the [employer] Guidebook and discussed cost and encouraged them to call pt's [employer] to determine if she has any coverage for in-home/LTC but unlikely. TALON provided the Medicaid LTC application to review towards determining if pt financially would qualify and discussed HH RN recommendation and their services and frequency. SW provided HH Choice List and preference is [facility] and pt and grandson very appreciative of information and HH referral. TALON provided [facility] brochure and then faxed clinicals, completed F2F and orders to review for pt d/c home today. TALON highly encouraged pt and family to begin discussing pt's goals for LTC (remain at home, [facility], etc) now so that they can best plan for future needs and likely increased memory issues. Family plans to begin further discussions after d/c. Plan: Patient to d/c home via grandson POV and grandson to stay with pt for a week before returning to [facility] and [facility] to begin services with pt after d/c. JEFF Parker
--- NOTE | 2020-06-14 15:41 | P.DS_ITS ---
History of Present Illness History of Present Illness Date Patient Seen: 06/13/20 Chief complaint: Afib Narrative: Ariana Ramos is an 79-year-old female with a past medical history of hypertension, paroxysmal atrial fibrillation, chronic back pain and spinal stenosis who presented to the emergency room at the direction of her pain specialist for an elevated heart rate. Patient has felt more fatigued for the approximately the past week and has had some episodes of palpitations with diaph oresis, but no overt chest pain or pressure, dizziness, nausea, vomiting, left arm pain, dyspnea on exertion, orthopnea, or lower extremity edema. She denies any symptoms currently. In the emergency room, patient was tachycardic with a rate of 150 with mildly low blood pressures after initial medications. She was mildly tachypneic, but saturating well on room air. EKG showed atrial fibrillation with rapid ventricular response with a rate of [address] or T-wave abnormalities indicative of ischemia. Laboratory evaluation revealed a unremarkable CBC, normal coagulation studies, chemistries are notable for a sodium of 135, creatinine of 1.0, and otherwise unremarkable CMP. Troponin was negative and repeat is currently pending. ProBNP was elevated at 3590. TSH was unremarkable at 0.697. Patient received a pre-procedural COVID-19 test on June 08 which was negative. Chest x-ray was negative for acute pathologies. Patient was given IV diltiazem, oral metoprolol, and started on a diltiazem infusion. She is admitted to the ICU under observation status for atrial fibrillation with rapid ventricular response. Discharge Providers Provider Date of admission: 06/11/20 11:56 Discharge Date: 06/13/20 Primary care physician: Jay Nicolas MD Consults: 06/12/20 09:10 Consult to Occupational Therapy Evaluate & Treat Comment: ? cognitive impairment Physician Instructions: Evaluate and treat 06/13/20 12:22 Consult to Home Health Routine Comment: AFIB, new med management, vitals Reason For Exam: Set up RN for discharge home 06/13/20 Discharge provider: Chichi Brannon MD Summary Hospital Course Discharge Diagnosis: 1. Paroxysmal atrial fibrillation 2. Hypertension 3. Chronic back 4. Cognitive dysfunction, question dementia Hospital Course: Patient was admitted to the hospital with rapid atrial fibrillation. She was initially placed on a Cardizem drip, then placed on b.i.d. metoprolol. Her rate remained elevated. It she was on both metoprolol and Cardizem b.i.d.. She had another episode of tachycardia and again required a Cardizem drip. The drip was discontinued it patient continued on both p.o. Cardizem and p.o. metoprolol. She was placed on apixaban for anticoagulation. Echocardiogram revealed an ejection fraction of 55-60%, severe left atrial enlargement, mild right atrial enlargement, moderate tricuspid regurgitation, which is unchanged from previous. The patient had some confusion during the hospital stay. It her grandson was concerned about a possibility of a stroke. She underwent a head CT which negative for an acute stroke. Patient had improvement of her heart rate. She was deemed appropriate for discharge and arrangements were made to discharge her home. Exam Vital Signs (past 8 hours): Oxygen Delivery Method Room Air Oxygen Flow Rate 0 Narrative Exam Narrative: Pleasant female in no acute distress Lungs: Clear to auscultation Cardiac exam: Irregularly irregular, normal S1-S2, 2/6 systolic ejection murmur Abdomen: Soft nontender nondistended Extremities: No edema Objective Labs Result Diagrams: 06/13/20 04:30 06/13/20 04:30 Discharge Assessment & Plan Assessment and Plan Assessment: 1. Paroxysmal atrial fibrillation Plan of Treatment: Cardizem 60 b.i.d. Metoprolol 50 b.i.d. Apixaban 5 p.o. b.i.d. Continue prior medication Follow-up with PCP next week Discharge Plan Discharge Plan Patient Disposition: Home Discharge orders & Medications Prescriptions: New diltiazem HCl 60 mg Capsule,Extended Release 12 Hr 60 mg PO BID Qty: 60 RF: 0 Eliquis 5 mg Tablet 5 mg PO BID Qty: 30 RF: 0 metoprolol succinate 50 mg Tablet Extended Release 24 Hr 50 mg PO BID 30 Days Qty: 60 RF: 0 Continued estradiol 0.5 MG tablet 0.5 mg PO QDAY Qty: 0 RF: 0 clobetasol 0.05 % ointment 1 pako Topical QDAY Qty: 0 RF: 0 [KRILL OIL] 500 mg PO QDAY Qty: 0 RF: 0 magnesium oxide 250 MG tablet 250 mg PO QDAY Qty: 0 RF: 0 cetirizine 10 MG tablet 10 mg PO QDAY Qty: 0 RF: 0 [TURMERIC] 500 mg PO QDAY Qty: 0 RF: 0 cyclobenzaprine 10 mg tablet 10 mg PO TID Qty: 90 RF: 0 gabapentin 300 mg capsule 300 mg PO TID RF: 0 diazepam 10 mg tablet 5 mg PO TID RF: 0 celecoxib 200 mg capsule 200 mg PO QDAY Qty: 90 RF: 4 Discontinued benazepril 40 MG tablet 20 mg PO QDAY Qty: 0 RF: 0 Follow up/Referrals: Jay Nicolas MD [Primary Care Provider] - Discharge Health Status Multidrug resistant organism: No MDRO Diet/Activity/Treatments Diet: Low-sodium and Low-cholesterol Activity: as tolerated Visit Report/Discharge Packet Visit Report Forms: Patient Portal/API, Stroke Signs & Symptoms Discharge Data Primary Care Provider: Jay Nicolas Attending Provider: Jay Gaitan Admit Date/Time: 06/11/20 11:56 Discharges patient from system. Discharge Date/Time: 06/13/20 13:32
[2020-06-15 14:42] LABS: Osmolality Urine 341 mOsmol/kg (.)
== END 2020-06-13 13:32 | disposition home or self-care (01) ==
LOC: ED 11:56 → AC 11:57 → ICU 13:49
PROVIDERS: Admitting Provider Internal Medicine; Emergency Provider Emergency Medicine; PCP Family Medicine; Visit Provider Internal Medicine
DX: I48.0 Paroxysmal atrial fibrillation (principal); I10 Essential (primary) hypertension; G89.29 Other chronic pain; M48.00 Spinal stenosis, site unspecified; G31.84 Mild cognitive impairment of uncertain or unknown etiology
CPT/HCPCS: 36415; 70450; 71045; 80048; 80053; 80061; 80076; 81001; 82550; 83036; 83735; 83880; 83935; 84300; 84443; 84484; 85025; 85610; 85730; 87797; 93005; 93306; 94762; 96365; 96366; 96375; 97129; 97130; 97165; 99284; G0378; J1940